=== PATIENT | male | born 1960 | race Caucasian/White ===

== ENCOUNTER 2020-01-05 11:59 | Emergency (ER) | payer OTHER, MEDICARE, SELFPAY ==
[2020-01-05 12:57] VITALS: BP 116/70; PULSE 80; RESP 20; TEMP 36.7; O2SAT 99; BMI 23.0
--- NOTE | 2020-01-05 13:12 | XR_ITS ---
EXAMINATION: XR knee LT 4V CLINICAL INFORMATION: Reason for Exam pt c left knee pain/swelling COMPARISON: None available at the time of this dictation. TECHNIQUE: frontal, lateral, tunnel and patella sunrise views FINDINGS: BONES: No fracture or dislocation is present. JOINTS: Narrowing of joint spaces and developed osteophytes from the edges of articular surfaces suggest degenerative osteoarthritis. SOFT TISSUE: Normal IMPRESSION: Moderate degenerative osteoarthritis involving both medial and lateral compartments. No significant knee joint effusion.
--- NOTE | 2020-01-05 13:17 | ED_ITS ---
HPI - Extremity Problem General Chief complaint: Extremity Problem Stated complaint: Knee Pain Time Seen by Provider: 01/05/20 12:57 Source: patient Mode of arrival: ambulatory Limitations: no limitations History of Present Illness HPI Narrative: 59yoM c PMHx of osteoarthritis, gout and past surgical history of knee surgery presenting to the ED with complaints of left knee pain /swelling since yesterday status post riding his bike. Denies any fevers, chills. Related Data Allergies Allergy/AdvReac Type Severity Reaction Status Date / Time codeine [CODEINE] Allergy Unknown ITCHING Verified 01/05/20 13:00 Review of Systems Review of Systems: Yes all other systems are reviewed and are negative Constitutional: Constitutional: Reports as per HPI Eyes: Eyes: Reports as per HPI ENT: Reports as per HPI Cardiovascular: Cardiovascular: Reports as per HPI Respiratory: Respiratory: Reports as per HPI Gastrointestinal: Gastrointestinal: Reports as per HPI Genitourinary: Genitourinary: Reports as per HPI Musculoskeletal: Musculoskeletal: Reports as per HPI Integumentary/Breasts: Skin/Breast: Reports as per HPI Neurologic: Reports as per HPI Psychiatric: Psychiatric: Reports as per HPI Endocrine: Endocrine: Reports as per HPI Hematologic/Lymphatic: Hematologic/Lymphatic: Reports as per HPI Allergic/Immunologic: Allergic/Immunologic: Reports as per HPI PMF Past Medical History Attestation statement: The following information was validated with the patient. Medical History Cholecystectomy planned Gout Osteoarthritis Surgical History H/O arthroscopic knee surgery H/O knee surgery Social History Social History Advance Directives: No Advance Directives Information Provided: Yes Physical Exam Vital Signs: Vital Signs: Vital Signs Temp Pulse Resp BP Pulse Ox 01/05/20 12:57 98.1 F 80 20 116/70 99 Body Mass Index 23.0 Const: General: cooperative, healthy appearing, comfortable, no acute distress, well developed, alert, awake and Physically active Nutritional Appearance: average body habitus and well nourished Orientation/consciousness: patient oriented x3 Limitations: no limitations HENMT: Head: Yes normal to inspection, Yes No palpable skull fracture present, Yes normocephalic and Yes atraumatic Ears: hearing grossly normal bilaterally General nose exam: Normal external nose present Face and sinus: Yes normal facial exam Mouth: moist mucous membranes Eyes: General: appearance normal, both eyes and all related structures Visual Nguyễn: normal visual nguyễn by confrontation Alignment and Position: alignment normal Periorbital: periorbital findings normal Eyelids: Yes eyelids normal Conjunctivae: conjunctivae normal Sclerae: sclerae normal Pupils: Equal, round and reactive pupils present EOM: EOMs intact bilaterally Neck: Neck: Yes normal visual inspection, Yes full ROM, Yes no lymphadenopathy, Yes no meningeal signs, Yes trachea midline and Yes supple Chest: Chest palpation & inspection: normal inspection of the chest Resp: Effort & Inspection: normal respiratory effort and able to speak in complete sentences Auscultation: clear to auscultation bilaterally, no crackles, no rales, no rhonchi and no wheezes Cardio: Rate: regular rate Rhythm: regular rhythm Heart sounds: S1 normal heart sound present and S2 normal heart sound present Peripheral pulses: Peripheral pulses 2+ throughout GI: Inspection: Yes normal to inspection Palpation (GI): Soft to palpation, nontender and No hepatosplenomegaly present Percussion: Yes normal to percussion Auscultation: normal bowel sounds : General: Yes no CVA tenderness Back/Spine/Pelvis: Back: no CVA tenderness Cervical Spine: normal cervical lordosis and cervical ROM normal Thoracic/Lumbar Spine: thoracic and lumbar spine normal to inspection and thoraco-lumbar ROM normal Skin: General skin exam: no rashes or lesions noted, elasticity normal and turgor normal Trauma: no lacerations or abrasions Wounds: no wounds Hair: normal Nails: normal Neuro: General: patient oriented x3 and no meningeal signs Cranial nerves: Yes CN's II-XII intact bilaterally and Yes Equal, round and reactive pupils present Cognition (Neuro): normal cognition Gait exam (Neuro): Normal gait present Motor exam (neuro): 5/5 motor strength present throughout Extrem: General: Yes normal to inspection, Yes full ROM, Yes capillary refill normal, Yes no clubbing, cyanosis or edema, No no pedal edema, No no calf tenderness, Yes normal gait and No edema Right upper extremity: normal to inspection, full ROM and normal capillary refill; no edema Left upper extremity: normal to inspection, full ROM and normal capillary refill; no edema Right lower extremity: normal to inspection, full ROM and normal capillary refill; no edema Left lower extremity: normal to inspection, full ROM, normal capillary refill and knee Details: normal to inspection, tenderness, swelling (mild sts ) Location: of the patella, normal ROM, knee ligament exam normal and other ( no erythema, Fluctuance or streaking noted.); no abrasions, no lacerations, no ecchymosis, no crepitus, no foreign bodies, no penetrating w ound, no deformity and no unusual warmth; no edema Psych: Appearance: grossly normal and well kempt Mental Status: mental status grossly normal Speech and movement: Normal speech and movement present and Clear speech present Affect: normal affect Attitude: cooperative Thought process: Normal thought process present Thought content: Normal thought content present Insight: Good insight present (Psych) Judgement: Good judgement present (Psych) Course Course Course Narrative: Pt is now s/p knee joint aspiration. BRIANNA Sahu from orthopedics assisted with the left knee joint aspiration and yellow thin colored fluid was aspirated about 10 mL. Patient does not appear to have a septic joint as the knee does not feel warm and there is no erythema and he has full range of motion. X-ray negative for any acute processes shows chronic changes. Patient reports he feels better. Will DC home with symptomatic treatment along with [facility] and to follow-up with orthopedics. Patient understands agrees with this plan. Procedures Joint Aspiration/Injection Joint Asp./Inject. 1: Time Out Performed: Yes Side of body: left Joint Aspirated: knee Ultrasound Guidance: No Skin Prep: sterile prep and drape Needle Size Used: 18G Fluid Obtained: clear (yellow thin colored ) Total fluid obtained (mL): 10 Patient Tolerated Procedure: well Complications: none Discharge Plan Discharge Clinical Impression: Osteoarthritis
[2020-01-05] MEDS: traMADoL HCL 50 MG TABLET PO (13:32)
[2020-01-05] MEDS: NaPROXEN 500 MG TABLET PO (13:32)
--- NOTE | 2020-01-05 14:53 | PC.NURSE ---
Report given to oncoming nurse, Arabella STALLINGS. No further questions from Arabella STALLINGS. Provider aware.
[2020-01-05 15:52] LABS: Neutrophils Synovial Fluid 88 %
[2020-01-05 15:53] LABS: Monocytes Synovial Fluid 12 %
[2020-01-05 15:54] LABS: BF Shift QC OK YES; Man Diluent Bkgrd OK YES
== END 2020-01-05 15:30 | disposition home or self-care (01) ==
PROVIDERS: Physician Assistant Medical; Emergency Provider Emergency Medicine
DX: M17.12 Unilateral primary osteoarthritis, left knee (principal); M10.9 Gout, unspecified; F17.200 Nicotine dependence, unspecified, uncomplicated; Z79.899 Other long term (current) drug therapy
CPT/HCPCS: 20610; 73564; 87071; 87205; 89051; 89060; 99283; 99284

== ENCOUNTER 2022-08-25 12:58 | Emergency (ER) | payer OTHER, MEDICARE, SELFPAY ==
--- NOTE | ~2022-08-25 | XR_ITS ---
EXAMINATION: XR HIP, LEFT CLINICAL INFORMATION: Left hip pain COMPARISON: 01/03/2019 TECHNIQUE: Two views of the left hip. Frontal view of the pelvis. FINDINGS: No fracture or dislocation. The hips are well aligned. Mild to moderate degenerative change of both hips with narrowing and sclerosis. The pelvic rim is intact. The sacroiliac joints and pubic symphysis are intact. Normal bowel gas pattern. XR/XR hip LT w PEL1V IMPRESSION: Mild to moderate degenerative change of both hips.
[2022-08-25 13:35] VITALS: BP 111/81; PULSE 90; RESP 18; TEMP 36; O2SAT 100; BMI 22.9
--- NOTE | 2022-08-25 13:35 | ED_ITS ---
HPI - General Adult General Chief complaint: Extremity Problem Stated complaint: l hip pain Time Seen by Provider: 08/25/22 17:04 History of Present Illness HPI narrative: Patient complains of left hip pain and aching throughout day without injury which is been gradually worsening over several weeks and became more severe over last couple of days, he denies any fever he denies any rash or redness or warmth, he denies any back pain no radiating pain no change to bowel or bladder no dysuria no incontinence Related Data Previous Rx's Medication Instructions Recorded naproxen 500 mg tablet 500 mg PO BID PRN pain (scale 01/05/20 score 1-3) #14 tabs prednisone 20 mg tablet 40 mg PO DAILY inflammation 5 days 01/05/20 #10 tabs tramadol 50 mg tablet 50 mg PO Q8H PRN pain #14 tabs 01/05/20 acetaminophen 500 mg tablet 1,000 mg PO QID PRN pain #30 tabs 08/25/22 ibuprofen 600 mg tablet 600 mg PO Q6H PRN pain #20 tabs 08/25/22 oxycodone 5 mg tablet 5 mg PO Q6H PRN pain #14 tabs 08/25/22 Allergies Allergy/AdvReac Type Severity Reaction Status Date / Time codeine [CODEINE] Allergy Unknown ITCHING Verified 01/05/20 13:00 [facility] Past Medical History Source: nursing notes reviewed Medical History Cholecystectomy planned Gout Osteoarthritis Surgical History H/O arthroscopic knee surgery H/O knee surgery Social History Social History Alcohol intake: never Smoked in Last 30 Days: Yes Substance Use Type: Marijuana Advance Directives: No Advance Directives Information Provided: Yes Physical Exam ED Vital Signs: BMI result Body Mass Index 22.9 General appearance no distress Head is no cephalic atraumatic Neck is supple Respiratory no distress Abdomen soft nontender The back there is no spinal tenderness there is good range of motion in the back Extremities the left hip had tenderness over anterior and lateral hip, pain is reproduced with range of motion, patient can range it but it is uncomfortable, there is no redness warmth or swelling around the joint that is visible, there is no rash on the skin, neurovascular intact distal Other extremities normal Neuro no focal motor sensory deficits Course Course Course Narrative: This is an RME: Additional HPI, ROS, PE not included below will be deferred to primary provider. This is a [id number]-male, with a history of osteoarthritis and gout, presenting to the emergency department with complaints of atraumatic left hip pain x 1 week. Taking prednisone from an old prescription for gout without any relief. Also taking NSAIDs without relief. Hx of hip pain in the past, never this severe. No fevers, chills. Pain to palpation over left posterior hip. Plan:Xray left hip X-ray showed moderate arthritis of the hip, on exam there is no sign of a septic joint, there was no fracture seen on x-ray, patient could ambulate with a limp and he was discharged with analgesics to follow with orthopedics Medications Administered Discontinued Medications Generic Name Dose Route Start Last Admin Trade Name Freq PRN Reason Stop Dose Admin Acetaminophen 975 mg 08/25/22 17:27 08/25/22 17:49 Acetaminophen 325 Mg Tablet PO 08/25/22 17:28 975 mg ONCE ONE Administration Ibuprofen 600 mg 08/25/22 17:27 08/25/22 17:49 Ibuprofen 600 Mg Tablet PO 08/25/22 17:28 600 mg ONCE ONE Administration Oxycodone HCl 10 mg 08/25/22 17:27 08/25/22 17:49 Oxycodone Hcl Immed Release 5 Mg Tablet PO 08/25/22 17:28 10 mg ONCE ONE Administration Discharge Plan Discharge Clinical Impression: Osteoarthritis of left hip Patient Disposition: Home, Self-Care Additional Instructions: X-ray showed arthritis in the hip which is the location of pain Follow with orthopedist for further evaluation Return any time any worse condition or concerns Prescriptions: New oxycodone 5 mg tablet 5 mg PO Q6H PRN (Reason: pain) Qty: 14 0RF Rx Instructions: Partial Fill upon patient request. ibuprofen 600 mg tablet 600 mg PO Q6H PRN (Reason: pain) Qty: 20 0RF acetaminophen 500 mg tablet 1,000 mg PO QID PRN (Reason: pain) Qty: 30 0RF No Action naproxen 500 mg tablet 500 mg PO BID PRN (Reason: pain (scale score 1-3)) Qty: 14 0RF tramadol 50 mg tablet 50 mg PO Q8H PRN (Reason: pain) Qty: 14 0RF prednisone 20 mg tablet 40 mg PO DAILY 5 Days Qty: 10 0RF Referrals: Walter Cheng MD [Physician] - (Left hip arthritis) Interventions: ED Discharge Assessment Last Done: 08/25/22 18:02 Discharge Date/Time: 08/25/22 18:02
[2022-08-25 16:19] VITALS: BP 164/69; PULSE 90; RESP 16; TEMP 36.7; O2SAT 96
[2022-08-25] MEDS: Ibuprofen 600 MG TABLET PO (17:49)
[2022-08-25] MEDS: oxyCODONE HCl Immed Release 5 MG TABLET 10 MG PO (17:49)
[2022-08-25] MEDS: Acetaminophen 325 MG TABLET 975 MG PO (17:49)
== END 2022-08-25 18:02 | disposition home or self-care (01) ==
PROVIDERS: Emergency Provider Internal Medicine; PCP Family Medicine
DX: M16.12 Unilateral primary osteoarthritis, left hip (principal); Z79.899 Other long term (current) drug therapy
CPT/HCPCS: 73502; 99283; 99284

== ENCOUNTER 2023-08-28 14:39 | Inpatient (IN) | payer OTHER, MEDICARE, SELFPAY ==
--- NOTE | ~2023-08-28 | CT_ITS ---
EXAMINATION: CT HEAD WITHOUT CONTRAST CLINICAL INFORMATION: Fall, AMS. COMPARISON: None available. TECHNIQUE: Contiguous axial imaging was performed from the skull base to vertex without intravenous administration of contrast. This CT examination was performed using dose optimization techniques as appropriate, variously including the following: *Automated exposure control *Adjustment of mA and/or kV according to patient size (this includes techniques or standardized protocols for targeted exams where dose is matched to indication/reason for exam; i.e. extremities or head) *Use of iterative reconstruction technique DLP: 672 mGy-cm FINDINGS: There is no acute intra-axial, extra-axial bleed, masses or midline shift. There is no acute infarction evolution. The back to white matter differentiation is maintained normal. The lateral ventricles are symmetrical in size and configuration without enlargement. Bone windows reveal no calvarial abnormality. There is no scalp soft tissue abnormality seen. There is sentinel right maxillary sinus with complete opacification and mild atrophy. Rest of the sinuses are clear. There is no scalp soft tissue abnormality. CT/CT head/brain wo IV con IMPRESSION: 1. No acute intracranial process seen. 2. Chronic right maxillary sinus inflammatory changes..
--- NOTE | ~2023-08-28 | XR_ITS ---
EXAMINATION: XR CHEST CLINICAL INFORMATION: Clearance COMPARISON: Chest radiograph from 05/14/2019 TECHNIQUE: Frontal view of the chest was obtained. FINDINGS: Life elevation right hemidiaphragm. No pneumothorax. Trachea is midline. Cardiac mediastinal silhouette is not enlarged. No large pleural effusion. Chronic changes of the left distal clavicle. Soft tissues are unremarkable. XR/XR chest 1V IMPRESSION: No acute cardiopulmonary process.
--- NOTE | ~2023-08-28 | CT_ITS ---
EXAMINATION: CT HEAD WITHOUT CONTRAST CLINICAL INFORMATION: Memory decline. COMPARISON: CT head from 08/28/2023. TECHNIQUE: Contiguous axial imaging was performed from the skull base to vertex without intravenous administration of contrast. This CT examination was performed using dose optimization techniques as appropriate, variously including the following: *Automated exposure control. *Adjustment of mA and/or kV according to patient size (this includes techniques or standardized protocols for targeted exams where dose is matched to indication/reason for exam; i.e. extremities or head). *Use of iterative reconstruction technique. DLP: 763 mGy-cm FINDINGS: There is no evidence of acute intracranial hemorrhage or edematous territorial infarction. Milian-white matter differentiation is preserved. Chronic lacunar infarcts of the left cerebellar hemisphere. A few foci of hypoattenuation in the periventricular and deep white matter are consistent with mild microangiopathy. Proportional prominence of the ventricles and sulcal spaces without evidence of obstructive hydrocephalus. No abnormal mass effect or midline shift. No extra-axial fluid collections. No acute soft tissue or osseous abnormalities. Complete opacification of an atelectatic right maxillary sinus. Mild mucosal thickening of the remaining paranasal sinuses. Moderate rightward nasal septal deviation. The mastoid air cells and middle ear cavities are clear. CT/CT head/brain wo IV con IMPRESSION: 1. No evidence of acute intracranial hemorrhage or edematous territorial infarction. 2. Mild underlying microangiopathy and generalized cerebral volume loss. Chronic lacunar infarcts of the left cerebellar hemisphere. 3. Complete opacification of an atelectatic right maxillary sinus.
[2023-08-28 14:49] VITALS: BP 140/74; PULSE 100; RESP 16; TEMP 37.1; O2SAT 97; BMI 21.7
[2023-08-28 14:58] VITALS: BP 137/67; PULSE 90; O2SAT 94
--- NOTE | 2023-08-28 15:40 | ECG_ITS ---
Test Reason : WEAKNESS Blood Pressure : / mmHG Vent. Rate : 082 BPM Atrial Rate : 082 BPM P-R Int : 134 ms QRS Dur : 080 ms QT Int : 364 ms P-R-T Axes : 065 060 011 degrees QTc Int : 425 ms Normal sinus rhythm Nonspecific T wave abnormality Abnormal ECG When compared with ECG of 14-MAY-2019 17:11, No significant change was found Referred By: Generic ED Physician Electronically Signed By:BERNADETTE LOPEZ MD
[2023-08-28 15:54] LABS: MANUAL DIFF FLAG NO
[2023-08-28 15:56] LABS: Basophils Percent Auto 0.4 % (0-2); Eosinophils Percent Auto 0.3 % (0-4); Hematocrit 33.8 % (42.0-52.0); Hemoglobin 11.1 g/dl (14.0-18.0); Imm Gran Abs Auto 0.02 X10*3/uL (0.00-0.03); Imm Gran Pct Auto 0.3 % (0.0-0.4); Lymphocytes Absolute Auto 0.8 X10*3/uL (1.2-4.9); Lymphocytes Percent Auto 11.7 % (20-40); Mean Corpuscular HGB Conc 32.8 g/dl (31.0-36.0); Mean Corpuscular Hemoglobin 29.1 pg (27.0-33.0); Mean Corpuscular Volume 88.5 fL (80.0-98.0); Monocytes Absolute Auto 0.5 X10*3/uL (0.1-1.2); Monocytes Percent Auto 6.8 % (2-11); Neutrophils Absolute Auto 5.4 x10*3/uL (2.0-8.3); Neutrophils Percent Auto 80.5 % (45-73); Platelet Count 158 X10*3/uL (160-400); Red Blood Count 3.82 X10*6/uL (4.60-5.80); Red Cell Distribution Width 14.3 % (11.0-16.0); White Blood Count 6.7 X10*3/uL (4.8-10.8)
[2023-08-28 16:12] LABS: Ethanol < 10 mg/dL
[2023-08-28 16:15] LABS: Alanine Aminotransferase 12 U/L (0-40); Albumin Level 3.7 g/dL (3.5-5.0); Alkaline Phosphatase 82 U/L (39-117); Anion Gap 13 (12-20); Aspartate Amino Transferase 19 U/L (5-37); Bilirubin Total 0.3 mg/dL (0.0-1.0); Blood Urea Nitrogen 16 mg/dL (9-16); Calcium 9.2 mg/dL (8.4-10.2); Carbon Dioxide 21 mmol/L (22-29); Chloride 113 mmol/L (96-108); Creatinine Clr Calc Pharmacy 29.1; Estimated Glomerular Filt Rate 27; Glucose Random 111 mg/dL (60-115); Potassium 4.1 mmol/L (3.3-5.1); Sodium 143 mmol/L (135-145); Total Protein 6.8 g/dL (6.5-8.0)
--- NOTE | 2023-08-28 16:32 | ED_ITS ---
HPI - Weakness General Chief complaint: Weakness Stated complaint: OVERTAKING MEDS X1 WK,SLURR,ANASTACIO WEAK PER EMS Time Seen by Provider: 08/28/23 16:30 Source: patient Mode of arrival: EMS Limitations: no limitations History of Present Illness ED Provider: jorge luis HPI Narrative: Patient's history of depression takes Seroquel and Ambien comes here as his girlfriend found him on the ground with increased weakness and falls patient has been very drowsy on arrival denies any overdose said that he took only 1 tablet each of Ambien and Seroquel 20 microgram/hour 2 of them on the back instead of one patch patient on arrival been drowsing slurring his each Related Data Previous Rx's ?Medication ?Instructions ?Recorded naproxen 500 mg tablet 500 mg PO BID PRN pain (scale 01/05/20 score 1-3) #14 tabs prednisone 20 mg tablet 40 mg (2 x 20 mg) PO DAILY 01/05/20 inflammation 5 days #10 tabs tramadol 50 mg tablet 50 mg PO Q8H PRN pain #14 tabs 01/05/20 acetaminophen 500 mg tablet 1,000 mg (2 x 500 mg) PO QID PRN 08/25/22 pain #30 tabs ibuprofen 600 mg tablet 600 mg PO Q6H PRN pain #20 tabs 08/25/22 oxycodone 5 mg tablet 5 mg PO Q6H PRN pain #14 tabs 08/25/22 Allergies Allergy/AdvReac Type Severity Reaction Status Date / Time codeine [CODEINE] Allergy Unknown ITCHING Verified 08/28/23 14:54 Review of Systems 2 Review of Systems: Yes all other systems are reviewed and are negative [facility] Past Medical History Medical History Cholecystectomy planned Osteoarthritis Gout Surgical History H/O arthroscopic knee surgery H/O knee surgery Social History Social History Alcohol intake: never Smoked in Last 30 Days: Yes Use of substances other than those prescribed or required for medical reasons: Yes Substance Use Type: Marijuana Substance Use Frequency: Daily Advance Directives: No Advance Directives Information Provided: No Physical Exam 2 Vital Signs: Vital Signs: Last Vital Signs Temp 98.2 F 08/29/23 01:08 Pulse 80 08/29/23 01:08 Resp 13 08/29/23 01:08 BP 107/54 L 08/29/23 01:08 Pulse Ox 94 08/29/23 01:08 O2 Del Method Room Air 08/29/23 01:08 O2 Flow Rate 2 08/28/23 18:28 Oxygen Flow Rate 2 08/28/23 14:49 BMI result Body Mass Index 21.7 Appearance: Alert. Oriented X3. Sleepy , arousable lethargic Eyes: PERRLA, No Nystagmus ENT: Pharynx normal. Oral Mucosa moist Neck: Normal inspection. Neck supple. CVS: Normal heart rate and rhythm. Pulses normal. Respiratory: No respiratory distress. Equal air entry bilateral, no wheezing/rales/rhonchi Abdomen: Soft and nontender. Bowel sounds are present, no mass palpable, no CVA tenderness Skin: Skin warm and dry. Normal skin color. Normal skin turgor. Extremities: No lower extremity edema. No calf tenderness Neuro: Oriented X 3. No motor deficit. No sensory deficit.No cerebellar signs , cranial nerves II-XII intact Medications Administered Discontinued Medications Generic Name Dose Route Start Last Admin Trade Name Freq PRN Reason Stop Dose Admin Sodium Chloride 1,000 mls @ 999 mls/hr 08/28/23 16:33 08/28/23 19:00 Ns IV 08/28/23 17:33 Infused .Q1H1M ONE Infusion Medical Decision Making Medical Decision Making [facility] Narrative: Patient's depression with possible increased medication intake not clear whether suicidal or not seen by care team will evaluate patient again in AM per family patient has been depressed and suicidal lately Differential Diagnosis Differential Diagnoses: The differential diagnosis associated with the presentation includes Lab Data [facility] Lab Attestation statement: I reviewed the patient's lab results. 08/28/23 15:51 08/28/23 15:51 Labs: Lab Results 08/28/23 08/28/23 Range/Units 15:51 21:13 WBC 6.7 (4.8-10.8) X10*3/uL RBC 3.82 L (4.60-5.80) X10*6/uL Hgb 11.1 L (14.0-18.0) g/dl Hct 33.8 L (42.0-52.0) % MCV 88.5 (80.0-98.0) fL MCH 29.1 (27.0-33.0) pg MCHC 32.8 (31.0-36.0) g/dl RDW 14.3 (11.0-16.0) % Plt Count 158 L (160-400) X10*3/uL MPV 10.0 (9.4-12.4) fL Immature Gran % (Auto) 0.3 (0.0-0.4) % Neut % (Auto) 80.5 H (45-73) % Lymph % (Auto) 11.7 L (20-40) % [place] % (Auto) 6.8 (2-11) % Eos % (Auto) 0.3 (0-4) % Baso % (Auto) 0.4 (0-2) % Lymph # (Auto) 0.8 L (1.2-4.9) X10*3/uL [place] # (Auto) 0.5 (0.1-1.2) X10*3/uL Eos # (Auto) 0.0 (0.0-0.4) X10*3/uL Baso # (Auto) 0.0 (0.0-0.2) X10*3/uL Abs Immat Gran (auto) 0.02 (0.00-0.03) X10*3/uL Absolute Neuts (auto) 5.4 (2.0-8.3) x10*3/uL Absolute Nucleated RBC 0.000 (0.0-0.012) X10*3/uL Nucleated RBC % (auto) 0.0 (0.0-0.2) /100WBC Sodium 143 (135-145) mmol/L Potassium 4.1 (3.3-5.1) mmol/L Chloride 113 H (96-108) mmol/L Carbon Dioxide 21 L (22-29) mmol/L Anion Gap 13 (12-20) BUN 16 (9-16) mg/dL Creatinine 2.39 H (0.5-1.4) mg/dL Estim Creat Clear Calc 29.1 Estimated GFR 27 Random Glucose 111 (60-115) mg/dL Calcium 9.2 (8.4-10.2) mg/dL Total Bilirubin 0.3 (0.0-1.0) mg/dL AST 19 (5-37) U/L ALT 12 (0-40) U/L Alkaline Phosphatase 82 (39-117) U/L Total Protein 6.8 (6.5-8.0) g/dL Albumin 3.7 (3.5-5.0) g/dL Urine Color Yellow Urine Appearance Clear Urine pH 6.0 (5.0-9.0) Ur Specific [place] 1.015 (1.005-1.025) Urine Protein Trace (Neg-Trace) mg/dL Urine Glucose (UA) Negative (Negative) mg/dL Urine Ketones Negative (Negative) mg/dL Urine Blood Negative (Negative) Urine Nitrite Negative (Negative) Ur Leukocyte Esterase Negative (Negative) Urine Opiates Screen Not Detected (Not Detect) Ur Buprenorphine Scrn Not Detected (Not Detect) ng/mL Ur Oxycodone Screen Not Detected (Not Detect) ng/mL Urine Methadone Screen Not Detected (Not Detect) ng/mL Urine Fentanyl Screen Not Detected (Not Detect) Ur Barbiturates Screen Not Detected (Not Detect) Ur Phencyclidine Scrn Not Detected (Not Detect) Ur Amphetamines Screen Not Detected (Not Detect) U Benzodiazepines Scrn POSITIVE H (Not Detect) Urine Cocaine Screen Not Detected (Not Detect) U Marijuana (THC) Screen POSITIVE H (Not Detect) Ethyl Alcohol < 10 mg/dL Influenza Type A (PCR) NEGATIVE (Negative) Influenza Type B (PCR) NEGATIVE (Negative) RSV RNA Qual (PCR) NEGATIVE (Negative) SARS-CoV-2 RNA (RT-PCR) NEGATIVE (Negative) Discharge Plan Discharge Clinical Impression: Depression, Overdose Patient Disposition: Still a Patient Prescriptions: No Action naproxen 500 mg tablet 500 mg PO BID PRN (Reason: pain (scale score 1-3)) Qty: 14 0RF tramadol 50 mg tablet 50 mg PO Q8H PRN (Reason: pain) Qty: 14 0RF prednisone 20 mg tablet 40 mg PO DAILY 5 Days Qty: 10 0RF oxycodone 5 mg tablet 5 mg PO Q6H PRN (Reason: pain) Qty: 14 0RF Rx Instructions: Partial Fill upon patient request. ibuprofen 600 mg tablet 600 mg PO Q6H PRN (Reason: pain) Qty: 20 0RF acetaminophen 500 mg tablet 1,000 mg PO QID PRN (Reason: pain) Qty: 30 0RF Print Language: Syriac
[2023-08-28] MEDS: 0.9 % Sodium Chloride 1,000 ML 999 ML IV (17:39)
--- NOTE | 2023-08-28 18:14 | PC.NURSE ---
patients daughter at bedside, states he has been increasingly depressed. patients daughter voices concern for patient intentionally overdosing on his medications, patient states he did take too much of his medication unable to verify how much. patient speech is slurred, patient not able to make sense of what he is saying.
[2023-08-28 18:28] VITALS: BP 137/77; PULSE 89; RESP 15; TEMP 37.1; O2SAT 98
[2023-08-28 21:23] LABS: Appearance Urine Clear; Color Urine Yellow; Glucose Urine UA Negative (Negative); Leukocyte Esterase Urine Negative (Negative); Nitrite Urine Negative (Negative); Specific Gravity - Urine 1.015 (1.005-1.025); Urine Blood Negative (Negative); Urine Ketones Negative (Negative); Urine Protein Trace mg/dL (Neg-Trace)
--- NOTE | 2023-08-28 21:27 | PC.NURSE ---
this rn assumed care of pt. pt alert to self at this time, and year, pt unable to state where he is. at this time, pt reports prior to arrival he was having SI thoughts; states he wanted to go to sleep and not wake up. pt denies acting on these thoughts in any way. pt reports being increasingly depressed. pt denies si/hi thoughts at this time. pt changed over into green gown. pt daughter at bedside for support. 1:1 sitter for safety.
[2023-08-28 21:31] LABS: Amphetamine Screen Urine Not Detected (Not Detect); Barbiturates, Urine Not Detected (Not Detect); Benzodiazepines Screen Urine POSITIVE (Not Detect); Buprenorphine Scr Not Detected (Not Detect); Cannabinoid Screen Urine POSITIVE (Not Detect); Cocaine Screen Urine Not Detected (Not Detect); Fentanyl, urine Not Detected (Not Detect); Methadone Screen, Urine Not Detected (Not Detect); Opiate Screen Urine Not Detected (Not Detect); Oxycodone Screen Urine Not Detected (Not Detect); Phencyclidine Screen Urine Not Detected (Not Detect)
[2023-08-28 21:58] LABS: Influenza A PCR NEGATIVE (Negative); Influenza B PCR NEGATIVE (Negative); Resp Syncy Virus RNA Qual PCR NEGATIVE (Negative); SARS COV2 PCR INHOUSE NEGATIVE (Negative)
[2023-08-28 22:48] VITALS: BP 112/56; PULSE 92; RESP 17; TEMP 36.7; O2SAT 94
--- NOTE | 2023-08-28 23:23 | MHC.CARE ---
RAD Team faxed pt IPLOC assessment to [facility]. [facility] received assessment and is reviewing. Will follow up tomorrow.
--- NOTE | 2023-08-29 00:01 | PC.NURSE ---
iv access removed at this time, provider aware.
[2023-08-29 01:08] VITALS: BP 107/54; PULSE 80; RESP 13; TEMP 36.8; O2SAT 94
--- NOTE | 2023-08-29 06:09 | PC.NURSE ---
pt allowed to sleep, respirations even and unlabored. 1:1 sitter at bedside.
[2023-08-29 06:16] VITALS: BP 142/76; PULSE 91; RESP 17; TEMP 37.3; O2SAT 92
[2023-08-29] MEDS: traMADoL HCL 50 MG TABLET PO ×2 (06:27→07:43)
--- NOTE | 2023-08-29 06:28 | PC.NURSE ---
pt reporting 8/10 bilateral knee pain, aware, pt medicated per mar, tolerated well.
--- NOTE | 2023-08-29 06:56 | MHC.EDTECH ---
Pt belongings in POD locker #8.
--- NOTE | 2023-08-29 07:46 | PC.NURSE ---
patient complaining of bilateral knee pain, medicated per the MAR. provided with breakfast tray. alert and oriented with even and unlabored respirations. patient observer remains at bedside
[2023-08-29 08:56] VITALS: BP 122/73; PULSE 84; O2SAT 94
--- NOTE | 2023-08-29 09:08 | MHC.CARE ---
On 08/27 Rad Team presented referral to [facility]. Today 08/28 t/w spoke with Glenys at [facility] who stated that the doctor declined Pt due to have an unwitnessed fall and suspected overdose. Bed search will continue.
[2023-08-29 10:08] LABS: Anion Gap 13 (12-20); Blood Urea Nitrogen 12 mg/dL (9-16); Calcium 9.1 mg/dL (8.4-10.2); Carbon Dioxide 20 mmol/L (22-29); Chloride 114 mmol/L (96-108); Creatinine Clr Calc Pharmacy 37.2; Estimated Glomerular Filt Rate 36; Glucose Random 109 mg/dL (60-115); Potassium 4.2 mmol/L (3.3-5.1); Sodium 143 mmol/L (135-145)
--- NOTE | 2023-08-29 11:13 | PC.NURSE ---
called pharmacy - they are working on med rec through [facility]
--- NOTE | 2023-08-29 12:21 | PHA.MEDREC ---
Pharmacy Consult ? Medication Reconciliation Pharmacy has completed the medication reconciliation, list received from the PR.
[2023-08-29] MEDS: Multivitamin TABLET 1 TAB PO (12:57)
[2023-08-29] MEDS: Nicotine 21 MG PATCH.TD24 TRANSDERMA (12:57)
[2023-08-29] MEDS: busPIRone HCl 10 MG TABLET PO ×2 (14:44→22:58)
[2023-08-29] MEDS: Ondansetron ODT 4 MG TAB.RAPDIS TRANSLINGU (14:44)
[2023-08-29 16:35] VITALS: BP 115/70; PULSE 92; RESP 16; TEMP 37; O2SAT 95
[2023-08-29] MEDS: Acetaminophen 325 MG TABLET 650 MG PO (17:42)
--- NOTE | 2023-08-29 18:05 | PC.NURSE ---
Addendum entered by Ita Prabhakar RN 08/29/23 18:25: Patient reported that he has fallen 3 times over the past week and is a fall risk Addendum entered by Ita Prabhakar RN 08/29/23 18:24: Patient signed a CV with provider upon arrival to the unit. Original Note: Mr. Gupta who prefers to be called, Anupam , was admitted to Room 6 from the ED at 4:30pm on a section 12B for, over-taking his meds He denied overusing his meds to this sql report writer, and identified depression, anxiety, and command auditory hallucinations to kill himself or hurt others as his current stressors. He denies active suicidal ideation and the hallucinations are ego dystonic. Mr. Gupta is a of the [employer] and endorses PTSD symptoms from his time served. Skin and safety checks were completed, VS WNL ([id number] 115/70-O2 sat 95%), height=5'9', weight 65.6kg/ 144lbs. Mr. Gupta reported smoking 1/2- 1 pack of cigarettes daily and is requesting the patch as a replacement aid. He reports smoking approximately 1 bowl of cannabis daily for sleep and denies other substance or ETOH use. Mr. Gupta was oriented to the unit and admission packet was reviewed with him. He was endorsing pain level of 9/10 due to gout flare-up. Buprenorphine transdermal 7 day patch was applied at 17:40 and witnessed by this sql report writer and Yari Calixto.
[2023-08-29 20:00] VITALS: BP 116/52; PULSE 73; TEMP 36.6
[2023-08-29 22:40] VITALS: BP 116/52; PULSE 73; TEMP 36.6
[2023-08-29] MEDS: QUEtiapine Fumarate 400 MG TABLET 800 MG PO (22:57)
[2023-08-29] MEDS: Atorvastatin Calcium 20 MG TABLET PO (22:57)
[2023-08-29] MEDS: Melatonin 3 MG TABLET 18 MG PO (22:58)
[2023-08-29] MEDS: traZODone HCL 50 MG TABLET PO (23:00)
[2023-08-29] MEDS: Mirtazapine 15 MG TABLET PO (23:00)
[2023-08-29] MEDS: lamoTRIgine 100 MG TABLET PO (23:00)
[2023-08-30 06:00] VITALS: BP 110/56; PULSE 74; RESP 14; TEMP 36.4; O2SAT 97
[2023-08-30] MEDS: QUEtiapine Fumarate 100 MG TABLET PO ×2 (06:33→15:39)
--- NOTE | 2023-08-30 06:34 | PC.NURSE ---
Anupam was given Seroquel PO prn for elevated anxiety this am.
[2023-08-30 08:10] VITALS: BP 91/52; PULSE 88; RESP 18; TEMP 36.4; O2SAT 89
[2023-08-30 08:39] LABS: Estimated Average Glucose 123 mg/dL; Hemoglobin A1c % 5.9 % (<6.0)
[2023-08-30 08:50] LABS: Cholesterol 186 mg/dL (<200); HDL Cholesterol 47 mg/dL (>40); LDL Cholesterol Calculated 108 mg/dL (<100); Magnesium 1.6 mg/dL (1.6-2.6); Triglycerides 155 mg/dL (<150)
[2023-08-30 09:05] LABS: Free T4 (Free Thyroxine) 0.83 ng/dL (0.71-1.85); Thyroid Stimulating Hormone 0.75 uIU/mL (0.32-4.0)
[2023-08-30] MEDS: busPIRone HCl 10 MG TABLET PO ×3 (09:23→20:39)
[2023-08-30] MEDS: Multivitamin TABLET 1 TAB PO (09:23)
[2023-08-30] MEDS: Ferrous Sulfate 324 MG TABLET.DR PO (09:23)
[2023-08-30 09:24] LABS: Folate 7.1 ng/mL (> or = 4.0); Vitamin B12 < 148 pg/mL (200-900)
[2023-08-30] MEDS: Nicotine 21 MG PATCH.TD24 TRANSDERMA (09:24)
[2023-08-30 10:36] LABS: MANUAL DIFF FLAG NO
[2023-08-30 10:40] LABS: Basophils Percent Auto 0.6 % (0-2); Eosinophils Absolute Auto 0.1 X10*3/uL (0.0-0.4); Eosinophils Percent Auto 1.7 % (0-4); Hematocrit 36.9 % (42.0-52.0); Hemoglobin 11.9 g/dl (14.0-18.0); Imm Gran Abs Auto 0.03 X10*3/uL (0.00-0.03); Imm Gran Pct Auto 0.6 % (0.0-0.4); Lymphocytes Absolute Auto 1.3 X10*3/uL (1.2-4.9); Lymphocytes Percent Auto 24.1 % (20-40); Mean Corpuscular HGB Conc 32.2 g/dl (31.0-36.0); Mean Corpuscular Volume 89.8 fL (80.0-98.0); Mean Platelet Volume 10.6 fL (9.4-12.4); Monocytes Absolute Auto 0.3 X10*3/uL (0.1-1.2); Monocytes Percent Auto 5.1 % (2-11); Neutrophils Absolute Auto 3.6 x10*3/uL (2.0-8.3); Neutrophils Percent Auto 67.9 % (45-73); Platelet Count 216 X10*3/uL (160-400); Red Blood Count 4.11 X10*6/uL (4.60-5.80); Red Cell Distribution Width 14.2 % (11.0-16.0); White Blood Count 5.3 X10*3/uL (4.8-10.8)
--- NOTE | 2023-08-30 10:55 | P.HPPS_ITS ---
HPI Date of Service: 08/30/23 Chief Complaint: OVERTAKING MEDS X1 WK,SLURR,ANASTACIO WEAK PER EMS Sources of Information: patient interviewed, chart reviewed and crisis/core team assessment reviewed HPI Subjective Notes: Burris Warning (given and shows understanding) and Conditional Voluntary Narrative: Mr. Gupta is a 63 year-old male who was brought via EMS after GF found him confused. He did not know whether he had taken more of his medications at bedtime. He is prescribed combination of seroquel and ambien. In the ED, utox positive for benzo and THC. CBC with normocytic anemia, no leukocytosis. CMP initially with increased Cr. 2.39, that went down to 1.87. BUN wnl 16. Creatinine clearance 37.2. On the unit, pt presents as pleasant and cooperative. He denies suicidal or homicidal ideation. He also denies he had an intentional overdose or that he was having suicidal ideation prior to being found confused. He states he has been struggling with his memory and at times wondering if he has taken his medications at night or not. He also reports he has noticed being more forgetful. He reports that for the past year he has been having more hallucinations. 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 He states he has always had flashbacks of past combat memories but now they have been more intense. He reports his sleep has improved with ambien which he has been taking for about one year or so. He reports his life overall is going well and he wants to be as healthy as he can to live as long as he can. Past Psychiatric History: Inpatient: pt reports he has had about 5-8 inpatient admissions throughout his life after he served in the . He thinks his last admission was 5 years ago. He denies hx of suicide attempts OP: prescriber Emanuel So Past medication trials: seroquel, buprenorphine, buspar, remeron Medical Evaluation Reviewed: Yes see for gout exacerbation- started on prednisone taper LIOR- resolving[facility] Medical History Cholecystectomy planned Osteoarthritis Gout Surgical History H/O arthroscopic knee surgery H/O knee surgery Family History: denies Social History: lives alone. He has daughter Substance History: past hx of opioid use, currently on buprenorphine THC- reports using sativa to help with sleep. denies use of alcohol or cocaine Trauma History: combat related trauma Diagnostics Vital Signs (24Hr): Vital Signs - 24 hr 08/29/23 16:35 08/29/23 20:00 08/29/23 22:40 Temperature 98.6 F 97.9 F 97.9 F Pulse Rate 92 73 73 Respiratory Rate 16 Blood Pressure 115/70 116/52 L 116/52 L Pulse Oximetry 95 Oxygen Delivery Method Room Air 08/30/23 08:10 Temperature 97.6 F Pulse Rate 88 Respiratory Rate 18 Blood Pressure 91/52 L Pulse Oximetry 89 L Oxygen Delivery Method Room Air BMI result Body Mass Index 21.7 Labs 08/30/23 09:51 08/30/23 09:51 Labs: Laboratory Results - last 48 hr 08/28/23 08/28/23 08/29/23 15:51 21:13 09:37 WBC 6.7 RBC 3.82 L Hgb 11.1 L Hct 33.8 L MCV 88.5 MCH 29.1 MCHC 32.8 RDW 14.3 Plt Count 158 L MPV 10.0 Immature Gran % (Auto) 0.3 Neut % (Auto) 80.5 H Lymph % (Auto) 11.7 L Coffey % (Auto) 6.8 Eos % (Auto) 0.3 Baso % (Auto) 0.4 Lymph # (Auto) 0.8 L Coffey # (Auto) 0.5 Eos # (Auto) 0.0 Baso # (Auto) 0.0 Abs Immat Gran (auto) 0.02 Absolute Neuts (auto) 5.4 Absolute Nucleated RBC 0.000 Nucleated RBC % (auto) 0.0 Sodium 143 143 Potassium 4.1 4.2 Chloride 113 H 114 H Carbon Dioxide 21 L 20 L Anion Gap 13 13 BUN 16 12 Creatinine 2.39 H 1.87 H Estim Creat Clear Calc 29.1 37.2 Estimated GFR 27 36 Random Glucose 111 109 Estimat Average Glucose Hemoglobin A1c % Calcium 9.2 9.1 Magnesium Total Bilirubin 0.3 AST 19 ALT 12 Alkaline Phosphatase 82 Total Protein 6.8 Albumin 3.7 Triglycerides Cholesterol LDL Cholesterol, Calc HDL Cholesterol Vitamin B12 Folate TSH Free T4 Urine Color Yellow Urine Appearance Clear Urine pH 6.0 Ur Specific [place] 1.015 Urine Protein Trace Urine Glucose (UA) Negative Urine Ketones Negative Urine Blood Negative Urine Nitrite Negative Ur Leukocyte Esterase Negative Urine Opiates Screen Not Detected Ur Buprenorphine Scrn Not Detected Ur Oxycodone Screen Not Detected Urine Methadone Screen Not Detected Urine Fentanyl Screen Not Detected Ur Barbiturates Screen Not Detected Ur Phencyclidine Scrn Not Detected Ur Amphetamines Screen Not Detected U Benzodiazepines Scrn POSITIVE H Urine Cocaine Screen Not Detected U Marijuana (THC) Screen POSITIVE H Ethyl Alcohol < 10 Influenza Type A (PCR) NEGATIVE Influenza Type B (PCR) NEGATIVE RSV RNA Qual (PCR) NEGATIVE SARS-CoV-2 RNA (RT-PCR) NEGATIVE 08/30/23 08/30/23 08:01 09:51 WBC 5.3 RBC 4.11 L Hgb 11.9 L Hct 36.9 L MCV 89.8 MCH 29.0 MCHC 32.2 RDW 14.2 Plt Count 216 D MPV 10.6 Immature Gran % (Auto) 0.6 H Neut % (Auto) 67.9 Lymph % (Auto) 24.1 Coffey % (Auto) 5.1 Eos % (Auto) 1.7 Baso % (Auto) 0.6 Lymph # (Auto) 1.3 Coffey # (Auto) 0.3 Eos # (Auto) 0.1 Baso # (Auto) 0.0 Abs Immat Gran (auto) 0.03 Absolute Neuts (auto) 3.6 Absolute Nucleated RBC 0.000 Nucleated RBC % (auto) 0.0 Sodium Potassium Chloride Carbon Dioxide Anion Gap BUN Creatinine Estim Creat Clear Calc Estimated GFR Random Glucose Estimat Average Glucose 123 Hemoglobin A1c % 5.9 Calcium Magnesium 1.6 Total Bilirubin AST ALT Alkaline Phosphatase Total Protein Albumin Triglycerides 155 H Cholesterol 186 LDL Cholesterol, Calc 108 H HDL Cholesterol 47 Vitamin B12 < 148 L Folate 7.1 TSH 0.75 Free T4 0.83 Urine Color Urine Appearance Urine pH Ur Specific [place] Urine Protein Urine Glucose (UA) Urine Ketones Urine Blood Urine Nitrite Ur Leukocyte Esterase Urine Opiates Screen Ur Buprenorphine Scrn Ur Oxycodone Screen Urine Methadone Screen Urine Fentanyl Screen Ur Barbiturates Screen Ur Phencyclidine Scrn Ur Amphetamines Screen U Benzodiazepines Scrn Urine Cocaine Screen U Marijuana (THC) Screen Ethyl Alcohol Influenza Type A (PCR) Influenza Type B (PCR) RSV RNA Qual (PCR) SARS-CoV-2 RNA (RT-PCR) Imaging Radiology Impressions: ITS Impressions Head CT 08/28/23 18:07 IMPRESSION: 1. No acute intracranial process seen. 2. Chronic right maxillary sinus inflammatory changes.. Chest X-Ray 08/29/23 09:16 IMPRESSION: No acute cardiopulmonary process. Meds/Allergies Meds Home Medications ?Medication ?Instructions ?Recorded ?Confirmed ?Type acetaminophen 500 mg tablet 500 mg PO Q6H PRN pain 08/29/23 08/29/23 History atorvastatin 20 mg tablet 20 mg PO BEDTIME 08/29/23 08/29/23 History benztropine 1 mg tablet 1 mg PO BID PRN EPS 08/29/23 08/29/23 History buprenorphine 20 mcg/hour weekly 1 patch transdermal QWEEK 08/29/23 08/29/23 History transdermal patch buprenorphine HCl 75 mcg buccal 75 mcg buccal Q12H PRN acute pain 08/29/23 08/29/23 History film buspirone 10 mg tablet 10 mg PO TID 08/29/23 08/29/23 History diclofenac sodium 1 % topical gel 4 g topical QID 08/29/23 08/29/23 History docusate sodium 100 mg capsule 100 mg PO BID PRN Constipation 08/29/23 08/29/23 History febuxostat 40 mg tablet 40 mg PO DAILY 08/29/23 08/29/23 History ferrous gluconate 324 mg (37.5 mg 324 mg PO DAILY 08/29/23 08/29/23 History iron) tablet fluticasone 250 mcg-salmeterol 50 1 inh inhalation BID 08/29/23 08/29/23 History mcg/dose blistr powdr for inhalation lamotrigine 100 mg tablet 100 mg PO BEDTIME 08/29/23 08/29/23 History melatonin 5 mg tablet 20 mg PO BEDTIME PRN Insomnia 08/29/23 08/29/23 History mirtazapine 15 mg tablet 15 mg PO BEDTIME 08/29/23 08/29/23 History multivitamin 1 tab PO DAILY 08/29/23 08/29/23 History nicotine 21 mg/24 hr daily 1 patch transdermal DAILY 08/29/23 08/29/23 History transdermal patch prednisone 10 mg tablet 10 mg PO DAILY PRN gout attack 08/29/23 08/29/23 History quetiapine 100 mg tablet 100 mg PO BID PRN voices/anxiety 08/29/23 08/29/23 History quetiapine 400 mg tablet 800 mg PO BEDTIME 08/29/23 08/29/23 History sildenafil 100 mg tablet 100 mg PO DAILY PRN Erectile 08/29/23 08/29/23 History Dysfunction tiotropium bromide 2.5 2 puff inhalation DAILY 08/29/23 08/29/23 History mcg/actuation mist for inhalation Allergies Allergies Allergy/AdvReac Type Severity Reaction Status Date / Time codeine [CODEINE] Allergy Unknown ITCHING Verified 08/28/23 14:54 Mental Status Exam Mental Status Exam Narrative: Appearance: appears older than reported age. thin, ambulating with some difficulty due to knee pain. no acute distress Behavior: friendly and cooperative Psychomotor: no agitation or retardation noted Speech: clear, normal rate/rhythm/volume, spontaneous TP: linear TC: worried as to why he was confused Mood: in pain Affect: congruent SI: denies HI: denies VH/AH: none- he reports flashback but these are not psychotic in nature Delusions: none Insight/judgment: fair x 2. Memory/cog: alert, oriented x 3. reports memory changes including forgetfulness and confusions. pending moca/acl Assessment & Plan Assessment & Plan (1) Chronic post-traumatic stress disorder (PTSD) after combat: Status: Acute Code(s): F43.12 - Post-traumatic stress disorder, chronic; Z91.82 - Personal history of deployment (2) Cognitive decline: Status: Acute Code(s): R41.89 - Other symptoms and signs involving cognitive functions and awareness Plan Mr. Gupta is a 63 year-old male who was brought via EMS after found by GF confused and disoriented. He could not remember whether he had taken more medications than he should at bedtime. He denies suicide attempt or intentional overdose but he is not sure if he took more seroquel thinking he had not taken any at all. He also takes ambien which is known to cause amnesia and confusions. Also, of note, ambien can exacerbate flashbacks as he has noted in the past year or so since he started taking this medications. Other than, pt presents as future oriented and hoping he is as healthy as possible to continue engaging in activities that he enjoys. We discussed completing assessments to assess his memory. Noted very low B12 <200- will start cyanocobalamine 1000mcg IM qweekly x 4, then transition to oral. Head CT did not show chronic changes including atrophy or microvascular changes. Will also complete MOCA/ACL. we had lengthy discussion about effects of ambien on memory/cognition. Will complete sleep study as he is worried that if he stops ambien, he may not sleep at all. Will continue seroquel for now. hold ambien. PLAN 1. admit to , cv, 15 minutes checks for safety 2. order sleep study 3. low b12- start cyanocobalamine 1000mcg IM qweekly 4. hold ambien for now 5. obtain collateral information. Patient educated on: diagnosis Informed Consent: understands Reason for continued inpatient stay Substantial Risk for: inability to function Statement Statement: I have reviewed the history and physical and performed a pertinent examination on my patient. No changes have occurred unless specified. If the History and Physical was not performed prior to admission, the Hospitalist's service will be consulted for completing the admission physical. Time Spent With Patient Time: Total time managing care of this patient today ____ minutes.
[2023-08-30 10:57] LABS: Uric Acid 10.8 mg/dL (3.4-7.0)
[2023-08-30 11:00] VITALS: BP 123/58; TEMP 36.4; O2SAT 95
--- NOTE | 2023-08-30 11:08 | P.EN_ITS ---
Event Note Date of Service: 08/30/23 Event Note: 63-year-old male with history of gout and osteoarthritis admitted to adult Psychiatry with consult placed hospitalist service for evaluation of gout attack. The patient reports long history of recurrent gout flares to the knees bilaterally. Denies gout in any other joints historically. He states yesterday began experiencing pain in the bilateral knees and difficulty bearing weight. States feels consistent with gout flare. Apparently, outpatient, he is pre scribed 10 mg daily p.r.n. for gout flare. On exam, there is warmth to the knees bilaterally without any significant erythema or swelling. Uric acid level is significantly elevated at 10.8. Would not recommend treating gout flares p.r.n. with 10 mg of prednisone as this is unlikely to be a high enough dose to treat an acute gout flare. While in the unit, will treat with prednisone taper with 40 mg daily x5 days, then 30 mg daily x2 days, 20 mg daily x2 days, 10 mg daily x2 days. He should be evaluated outpatient by PCP and should be considered for allopurinol for uric acid suppression rather than using p.r.n. prednisone. CBC without any leukocytosis. Thank you for allowing me to participate in this consult. Signing off at this time. Please do not hesitate to call for further questions or for any acute medical concerns/issues that should arise. Time Spent With Patient Time: Total time managing care of this patient today ____ minutes.
[2023-08-30] MEDS: predniSONE 10 MG TABLET 30 MG PO (11:24)
[2023-08-30] MEDS: Acetaminophen 325 MG TABLET 650 MG PO (12:39)
[2023-08-30 14:21] LABS: Anion Gap 15 (12-20)
[2023-08-30 14:24] LABS: Blood Urea Nitrogen 12 mg/dL (9-16); Calcium 9.6 mg/dL (8.4-10.2); Carbon Dioxide 21 mmol/L (22-29); Chloride 110 mmol/L (96-108); Creatinine Clr Calc Pharmacy 32.3; Estimated Glomerular Filt Rate 31; Glucose Random 152 mg/dL (60-115); Potassium 4.1 mmol/L (3.3-5.1); Sodium 142 mmol/L (135-145)
[2023-08-30 14:30] VITALS: BP 110/56; PULSE 74; PULSE 78; RESP 14; TEMP 36.4; O2SAT 97
[2023-08-30] MEDS: traMADoL HCL 50 MG TABLET PO (14:59)
[2023-08-30] MEDS: Cyanocobalamin (Vitamin B-12) 1,000 MCG/ML VIAL 1000 MCG IM (15:33)
[2023-08-30 19:54] VITALS: BP 115/67; PULSE 79; RESP 16; TEMP 36.7; O2SAT 94
[2023-08-30] MEDS: Atorvastatin Calcium 20 MG TABLET PO (20:39)
[2023-08-30] MEDS: lamoTRIgine 100 MG TABLET PO (20:39)
[2023-08-30] MEDS: Mirtazapine 30 MG TABLET PO (20:39)
[2023-08-30] MEDS: QUEtiapine Fumarate 400 MG TABLET 800 MG PO (20:39)
[2023-08-30] MEDS: Melatonin 3 MG TABLET 18 MG PO (20:39)
[2023-08-30 22:00] VITALS: BP 115/67; PULSE 94; RESP 16; TEMP 36.7; O2SAT 94
--- NOTE | 2023-08-30 23:47 | PC.RT ---
Sleep study started at 2340 pt on RA; sitter in room
[2023-08-31 07:00] VITALS: BMI 21.9
[2023-08-31 08:00] VITALS: BP 112/61; PULSE 76; RESP 18; TEMP 36.4; O2SAT 97
[2023-08-31] MEDS: predniSONE 10 MG TABLET 30 MG PO (09:17)
[2023-08-31] MEDS: Ferrous Sulfate 324 MG TABLET.DR PO (09:17)
[2023-08-31] MEDS: busPIRone HCl 10 MG TABLET PO ×3 (09:17→20:39)
[2023-08-31] MEDS: Multivitamin TABLET 1 TAB PO (09:17)
[2023-08-31] MEDS: Nicotine 21 MG PATCH.TD24 TRANSDERMA (09:20)
[2023-08-31] MEDS: QUEtiapine Fumarate 100 MG TABLET PO ×2 (09:36→14:31)
[2023-08-31] MEDS: Fluticasone/Vilanterol 100/25 BLST.W.DEV 1 PUFF INHALE (09:37)
[2023-08-31] MEDS: Tiotropium Bromide 2.5 mcg 1 PUFF/2.5 MCG MIST.INHAL 2 PUFF INHALE (09:37)
--- NOTE | 2023-08-31 10:14 | HO.PSYCHPN ---
Subjective Subjective Date of Service: 08/31/23 Reason For Visit: OVERTAKING MEDS X1 WK,SLURR,ANASTACIO WEAK PER EMS Subjective Notes: Conditional Voluntary Interim History: Pt slept about 7 hrs. He did have the sleep study last night, awaiting results. Head CT did show chronic lacunar infarcts of the left cerebellar hemisphere, periventricular and deep white matter microangiopathy and generalized atrophy. Pt reports he slept well too without the ambien. He does not seem to remember our lengthy conversation about rationale for sleep study. pending MOCA and ACL. He denies SI/HI. He reports mood better. He reports less nightmares last night. Less flashbacks. He has been visible on the unit, social with peers. Pleasant on approach. Medication Compliance: Yes Side effects from medications: No Attending Groups: Yes Mental Status Exam Mental Status Exam Narrative: Appearance: appears older than reported age. thin. no acute distress Behavior: friendly and cooperative Psychomotor: no agitation or retardation noted Speech: clear, normal rate/rhythm/volume, spontaneous TP: linear TC: worried as to why he was confused Mood: much better Affect: congruent, brightens up and smiles often SI: denies HI: denies VH/AH: none- he reports flashback but these are not psychotic in nature Delusions: none Insight/judgment: fair x 2. Memory/cog: alert, oriented x 3. reports memory changes including forgetfulness and confusions. pending moca/acl Diagnostics Vital Signs (24Hr): Vital Signs - 24 hr 08/30/23 11:00 08/30/23 14:30 08/30/23 14:30 Temperature 97.6 F 97.6 F 97.6 F Pulse Rate 78 74 Respiratory Rate 14 14 Blood Pressure 123/58 L 110/56 L 110/56 L Pulse Oximetry 95 97 97 Oxygen Delivery Method Room Air Room Air Room Air 08/30/23 19:54 08/30/23 22:00 Temperature 98.0 F 98.0 F Pulse Rate 79 94 Respiratory Rate 16 16 Blood Pressure 115/67 115/67 Pulse Oximetry 94 94 Oxygen Delivery Method Room Air Room Air BMI result Body Mass Index 21.7 Labs 08/30/23 09:51 08/30/23 09:51 Labs: Laboratory Results - last 48 hr 08/30/23 08/30/23 08:01 09:51 WBC 5.3 RBC 4.11 L Hgb 11.9 L Hct 36.9 L MCV 89.8 MCH 29.0 MCHC 32.2 RDW 14.2 Plt Count 216 D MPV 10.6 Immature Gran % (Auto) 0.6 H Neut % (Auto) 67.9 Lymph % (Auto) 24.1 [place] % (Auto) 5.1 Eos % (Auto) 1.7 Baso % (Auto) 0.6 Lymph # (Auto) 1.3 [place] # (Auto) 0.3 Eos # (Auto) 0.1 Baso # (Auto) 0.0 Abs Immat Gran (auto) 0.03 Absolute Neuts (auto) 3.6 Absolute Nucleated RBC 0.000 Nucleated RBC % (auto) 0.0 Sodium 142 Potassium 4.1 Chloride 110 H Carbon Dioxide 21 L Anion Gap 15 BUN 12 Creatinine 2.15 H Estim Creat Clear Calc 32.3 Estimated GFR 31 Random Glucose 152 H Estimat Average Glucose 123 Hemoglobin A1c % 5.9 Uric Acid 10.8 H Calcium 9.6 Magnesium 1.6 Triglycerides 155 H Cholesterol 186 LDL Cholesterol, Calc 108 H HDL Cholesterol 47 Vitamin B12 < 148 L Folate 7.1 TSH 0.75 Free T4 0.83 Imaging Radiology Impressions: ITS Impressions Head CT 08/28/23 18:07 IMPRESSION: 1. No acute intracranial process seen. 2. Chronic right maxillary sinus inflammatory changes.. Chest X-Ray 08/29/23 09:16 IMPRESSION: No acute cardiopulmonary process. Head CT 08/30/23 14:30 IMPRESSION: 1. No evidence of acute intracranial hemorrhage or edematous territorial infarction. 2. Mild underlying microangiopathy and generalized cerebral volume loss. Chronic lacunar infarcts of the left cerebellar hemisphere. 3. Complete opacification of an atelectatic right maxillary sinus. Medications Medications Current Medications Acetaminophen (Acetaminophen 325 Mg Tablet) 650 mg PO Q6H PRN PRN Reason: pain Last Admin: 08/30/23 12:39 Dose: 650 mg Al Hydroxide/Mg Hydroxide (Magnesium Hydrox/Alum Hydrox 30 Ml Oral.Susp) 30 ml PO Q6H PRN PRN Reason: Heartburn/Nausea Atorvastatin Calcium (Atorvastatin Calcium 20 Mg Tablet) 20 mg PO BEDTIME RAULITO Last Admin: 08/30/23 20:39 Dose: 20 mg Buspirone HCl (Buspirone Hcl 10 Mg Tablet) 10 mg PO TID RAULITO Last Admin: 08/31/23 09:17 Dose: 10 mg Cyanocobalamin (Cyanocobalamin (Vitamin B-12) 1,000 Mcg/Ml Vial) 1,000 mcg IM Q7D [facility] Stop: 09/20/23 14:31 Last Admin: 08/30/23 15:33 Dose: 1,000 mcg Docusate Sodium (Docusate Sodium 100 Mg Capsule) 100 mg PO BID PRN PRN Reason: Constipation Ferrous Sulfate (Ferrous Sulfate 324 Mg Tablet.Dr) 324 mg PO DAILY [facility] Last Admin: 08/31/23 09:17 Dose: 324 mg Fluticasone/Vilanterol (Fluticasone/Vilanterol 100/25 Blst.W.Dev) 1 puff INHALE RDAILY [facility] Last Admin: 08/31/23 09:37 Dose: 1 puff Lamotrigine (Lamotrigine 100 Mg Tablet) 100 mg PO BEDTIME [facility] Last Admin: 08/30/23 20:39 Dose: 100 mg Magnesium Hydroxide (Milk Of Magnesia 30 Ml Oral.Susp) 30 ml PO DAILY PRN PRN Reason: Constipation Melatonin (Melatonin 3 Mg Tablet) 18 mg PO BEDTIME PRN PRN Reason: Insomnia Last Admin: 08/30/23 20:39 Dose: 18 mg Mirtazapine (Mirtazapine 30 Mg Tablet) 30 mg PO BEDTIME [facility] Last Admin: 08/30/23 20:39 Dose: 30 mg Multivitamins/Vitamin C (Multivitamin Tablet) 1 tab PO DAILY [facility] Last Admin: 08/31/23 09:17 Dose: 1 tab Nicotine (Nicotine 21 Mg Patch.Td24) 21 mg TRANSDERMA DAILY [facility] Last Admin: 08/31/23 09:20 Dose: 21 mg Pt Own (Diclofenac (Sodium 1 % Gel)) 4 gm TOPICAL QID [facility] Last Admin: 08/31/23 09:38 Dose: Not Given Pt Own ( Buprenorphine 20 Mcg /Hour Patch Weekly) 1 patch TRANSDERMA Q7D [facility] Last Admin: 08/29/23 17:38 Dose: 1 patch Non-Formulary Medication (Buprenorphine Hcl) 75 mcg BUCCAL Q12H PRN PRN Reason: acute pain Non-Formulary Medication (Febuxostat) 40 mg PO DAILY [facility] Prednisone (Prednisone 10 Mg Tablet) 40 mg PO DAILY [facility]; Taper Stop: 09/10/23 11:14 Last Admin: 08/31/23 09:17 Dose: 40 mg Quetiapine Fumarate (Quetiapine Fumarate 100 Mg Tablet) 100 mg PO BID PRN PRN Reason: voices/anxiety Last Admin: 08/31/23 09:36 Dose: 100 mg Quetiapine Fumarate (Quetiapine Fumarate 400 Mg Tablet) 800 mg PO BEDTIME [facility] Last Admin: 08/30/23 20:39 Dose: 800 mg Tiotropium [place] (Tiotropium [place] 2.5 Mcg 1 Puff/2.5 Mcg Mist.Inhal) 2 puff INHALE RDAILY [facility] Last Admin: 08/31/23 09:37 Dose: 2 puff Trazodone HCl (Trazodone Hcl 50 Mg Tablet) 50 mg PO BEDTIME MRX1 PRN PRN Reason: Insomnia Last Admin: 08/29/23 23:00 Dose: 50 mg Allergies Allergies Allergy/AdvReac Type Severity Reaction Status Date / Time codeine [CODEINE] Allergy Unknown ITCHING Verified 08/28/23 14:54 Assessment & Plan Assessment & Plan (1) Chronic post-traumatic stress disorder (PTSD) after combat: Status: Acute Code(s): F43.12 - Post-traumatic stress disorder, chronic; Z91.82 - Personal history of deployment (2) Cognitive decline: Status: Acute Code(s): R41.89 - Other symptoms and signs involving cognitive functions and awareness Plan Mr. Gupta is a 63 year-old male who was brought via EMS after found by GF confused and disoriented. He could not remember whether he had taken more medications than he should at bedtime. He denies suicide attempt or intentional overdose but he is not sure if he took more seroquel thinking he had not taken any at all. He also takes ambien which is known to cause amnesia and confusions. Also, of note, ambien can exacerbate flashbacks as he has noted in the past year or so since he started taking this medications. Other than, pt presents as future oriented and hoping he is as healthy as possible to continue engaging in activities that he enjoys. We discussed completing assessments to assess his memory. Noted very low B12 <200- will start cyanocobalamine 1000mcg IM qweekly x 4, then transition to oral. Head CT did show microvascular changes and atrophy- lacunar infarcts of left cerebellar hemisphere and microangiopathy. Will also complete MOCA/ACL. we had lengthy discussion about effects of ambien on memory/cognition. Will complete sleep study as he is worried that if he stops ambien, he may not sleep at all. Will continue seroquel for now. hold ambien. PLAN 1. continue current medications. Remeron increase to 30mg po qhs for depression and sleep. stop AMBIEN. head CT chronic lacunar infarcts of left cerebellar hemisphere and atrophy. pending MOCA/ACL to coorrelate with memory/cog changes. He did receive cyanocobalamine for b12 deficiency <200. Reason for continued inpatient stay Substantial Risk for: inability to function Time Spent With Patient Time: Total time managing care of this patient today ____ minutes.
[2023-08-31] MEDS: Sennosides/Docusate Sodium TABLET 1 TAB PO ×2 (14:32→20:39)
--- NOTE | 2023-08-31 15:37 | PC.NURSE ---
Raf signed 3 day notice. Up Mon09/05/23.
--- NOTE | 2023-08-31 16:03 | PC.NURSE ---
Pt participated in [facility] screen on this date, score 18/30, indicative of mild to moderate cognitive impairment. Nursing, and SW aware.
[2023-08-31 20:00] VITALS: BP 113/55; PULSE 87; RESP 18; TEMP 36.4; O2SAT 98
[2023-08-31] MEDS: QUEtiapine Fumarate 400 MG TABLET 800 MG PO (20:39)
[2023-08-31] MEDS: lamoTRIgine 100 MG TABLET PO (20:39)
[2023-08-31] MEDS: Atorvastatin Calcium 20 MG TABLET PO (20:39)
[2023-08-31] MEDS: Mirtazapine 30 MG TABLET PO (20:39)
[2023-09-01] MEDS: Nicotine 21 MG PATCH.TD24 TRANSDERMA (06:30)
[2023-09-01 07:40] VITALS: BP 121/60; PULSE 86; RESP 16; TEMP 36.4; O2SAT 95
[2023-09-01] MEDS: predniSONE 10 MG TABLET 30 MG PO (07:56)
[2023-09-01] MEDS: Ferrous Sulfate 324 MG TABLET.DR PO (07:56)
[2023-09-01] MEDS: busPIRone HCl 10 MG TABLET PO ×3 (07:56→21:27)
[2023-09-01] MEDS: Sennosides/Docusate Sodium TABLET 1 TAB PO ×2 (07:56→21:26)
[2023-09-01] MEDS: Multivitamin TABLET 1 TAB PO (07:56)
[2023-09-01] MEDS: QUEtiapine Fumarate 100 MG TABLET PO ×2 (08:08→12:40)
[2023-09-01] MEDS: Fluticasone/Vilanterol 100/25 BLST.W.DEV 1 PUFF INHALE (08:55)
[2023-09-01] MEDS: Tiotropium Bromide 2.5 mcg 1 PUFF/2.5 MCG MIST.INHAL 2 PUFF INHALE (08:57)
--- NOTE | 2023-09-01 14:56 | P.PNPSI_ITS ---
Subjective Subjective Date of Service: 09/01/23 Reason For Visit: OVERTAKING MEDS X1 WK,SLURR,ANASTACIO WEAK PER EMS Subjective Notes: Conditional Voluntary Interim History: Pt slept about 7hrs again last night. He reports flashbacks and at times voices later in the day telling him to harm himself. He denies any plan or intent to harm himself. MOCA 18/20 with severe impairments in executive function, recall although intact orientation and language. 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 Review of Systems Review of Systems knee pain no SOB no chest pain no GI concerns Yes all other systems are reviewed and are negative Mental Status Exam Mental Status Exam Narrative: Appearance: appears older than reported age. thin. no acute distress Behavior: friendly and cooperative Psychomotor: no agitation or retardation noted Speech: clear, normal rate/rhythm/volume, spontaneous TP: linear TC: worried as to why he was confused Mood: much better Affect: congruent, brightens up and smiles often SI: denies HI: denies VH/AH: none- he reports flashback but these are not psychotic in nature Delusions: none Insight/judgment: fair x 2. Memory/cog: alert, oriented x 3. reports memory changes including forgetfulness and confusions. pending moca/acl Diagnostics Vital Signs (24Hr): Vital Signs - 24 hr 08/31/23 20:00 09/01/23 07:40 Temperature 97.6 F 97.6 F Pulse Rate 87 86 Respiratory Rate 18 16 Blood Pressure 113/55 L 121/60 Pulse Oximetry 98 95 Oxygen Delivery Method Room Air Room Air BMI result Body Mass Index 21.9 Labs 08/30/23 09:51 08/30/23 09:51 Imaging Radiology Impressions: ITS Impressions Head CT 08/28/23 18:07 IMPRESSION: 1. No acute intracranial process seen. 2. Chronic right maxillary sinus inflammatory changes.. Chest X-Ray 08/29/23 09:16 IMPRESSION: No acute cardiopulmonary process. Head CT 08/30/23 14:30 IMPRESSION: 1. No evidence of acute intracranial hemorrhage or edematous territorial infarction. 2. Mild underlying microangiopathy and generalized cerebral volume loss. Chronic lacunar infarcts of the left cerebellar hemisphere. 3. Complete opacification of an atelectatic right maxillary sinus. Medications Medications Current Medications Acetaminophen (Acetaminophen 325 Mg Tablet) 650 mg PO Q6H PRN PRN Reason: pain Last Admin: 08/30/23 12:39 Dose: 650 mg Al Hydroxide/Mg Hydroxide (Magnesium Hydrox/Alum Hydrox 30 Ml Oral.Susp) 30 ml PO Q6H PRN PRN Reason: Heartburn/Nausea Atorvastatin Calcium (Atorvastatin Calcium 20 Mg Tablet) 20 mg PO BEDTIME [facility] Last Admin: 08/31/23 20:39 Dose: 20 mg Buspirone HCl (Buspirone Hcl 10 Mg Tablet) 10 mg PO TID [facility] Last Admin: 09/01/23 07:56 Dose: 10 mg Cyanocobalamin (Cyanocobalamin (Vitamin B-12) 1,000 Mcg/Ml Vial) 1,000 mcg IM Q7D [facility] Stop: 09/20/23 14:31 Last Admin: 08/30/23 15:33 Dose: 1,000 mcg Ferrous Sulfate (Ferrous Sulfate 324 Mg Tablet.Dr) 324 mg PO DAILY [facility] Last Admin: 09/01/23 07:56 Dose: 324 mg Fluticasone/Vilanterol (Fluticasone/Vilanterol 100/25 Blst.W.Dev) 1 puff INHALE RDAILY [facility] Last Admin: 09/01/23 08:55 Dose: 1 puff Lamotrigine (Lamotrigine 100 Mg Tablet) 100 mg PO BEDTIME [facility] Last Admin: 08/31/23 20:39 Dose: 100 mg Magnesium Hydroxide (Milk Of Magnesia 30 Ml Oral.Susp) 30 ml PO DAILY PRN PRN Reason: Constipation Melatonin (Melatonin 3 Mg Tablet) 18 mg PO BEDTIME PRN PRN Reason: Insomnia Last Admin: 08/30/23 20:39 Dose: 18 mg Mirtazapine (Mirtazapine 30 Mg Tablet) 30 mg PO BEDTIME [facility] Last Admin: 08/31/23 20:39 Dose: 30 mg Multivitamins/Vitamin C (Multivitamin Tablet) 1 tab PO DAILY [facility] Last Admin: 09/01/23 07:56 Dose: 1 tab Nicotine (Nicotine 21 Mg Patch.Td24) 21 mg TRANSDERMA DAILY [facility] Last Admin: 09/01/23 06:30 Dose: 21 mg Pt Own (Diclofenac (Sodium 1 % Gel)) 4 gm TOPICAL QID [facility] Last Admin: 09/01/23 14:15 Dose: Not Given Pt Own ( Buprenorphine 20 Mcg /Hour Patch Weekly) 1 patch TRANSDERMA Q7D [facility] Last Admin: 08/29/23 17:38 Dose: 1 patch Non-Formulary Medication (Buprenorphine Hcl) 75 mcg BUCCAL Q12H PRN PRN Reason: acute pain Non-Formulary Medication (Febuxostat) 40 mg PO DAILY [facility] Prednisone (Prednisone 10 Mg Tablet) 40 mg PO DAILY [facility]; Taper Stop: 09/10/23 11:14 Last Admin: 09/01/23 07:56 Dose: 40 mg Quetiapine Fumarate (Quetiapine Fumarate 100 Mg Tablet) 100 mg PO BID PRN PRN Reason: voices/anxiety Last Admin: 09/01/23 12:40 Dose: 100 mg Quetiapine Fumarate (Quetiapine Fumarate 400 Mg Tablet) 800 mg PO BEDTIME [facility] Last Admin: 08/31/23 20:39 Dose: 800 mg Senna/Docusate Sodium (Sennosides/Docusate Sodium Tablet) 1 tab PO BID [facility] Last Admin: 09/01/23 07:56 Dose: 1 tab Tiotropium [place] (Tiotropium [place] 2.5 Mcg 1 Puff/2.5 Mcg Mist.Inhal) 2 puff INHALE RDAILY [facility] Last Admin: 09/01/23 08:57 Dose: 2 puff Trazodone HCl (Trazodone Hcl 50 Mg Tablet) 50 mg PO BEDTIME MRX1 PRN PRN Reason: Insomnia Last Admin: 08/29/23 23:00 Dose: 50 mg Allergies Allergies Allergy/AdvReac Type Severity Reaction Status Date / Time codeine [CODEINE] Allergy Unknown ITCHING Verified 08/28/23 14:54 Assessment & Plan Assessment & Plan (1) Chronic post-traumatic stress disorder (PTSD) after combat: Status: Acute Code(s): F43.12 - Post-traumatic stress disorder, chronic; Z91.82 - Personal history of deployment (2) Cognitive decline: Status: Acute Code(s): R41.89 - Other symptoms and signs involving cognitive functions and awareness Plan Mr. Gupta is a 63 year-old male who was brought via EMS after found by GF confused and disoriented. He could not remember whether he had taken more medications than he should at bedtime. He denies suicide attempt or intentional overdose but he is not sure if he took more seroquel thinking he had not taken any at all. He also takes ambien which is known to cause amnesia and confusions. Also, of note, ambien can exacerbate flashbacks as he has noted in the past year or so since he started taking this medications. Other than, pt presents as future oriented and hoping he is as healthy as possible to continue engaging in activities that he enjoys. We discussed completing assessments to assess his memory. Noted very low B12 <200- will start cyanocobalamine 1000mcg IM qweekly x 4, then transition to oral. Head CT did show microvascular changes and atrophy- lacunar infarcts of left cerebellar hemisphere and microangiopathy. Will also complete MOCA/ACL. we had lengthy discussion about effects of ambien on memory/cognition. Will complete sleep study as he is worried that if he stops ambien, he may not sleep at all. Will continue seroquel for now. hold ambien. PLAN 1. continue current medications. Remeron increase to 30mg po qhs for depression and sleep. stop AMBIEN. head CT chronic lacunar infarcts of left cerebellar hemisphere and atrophy. pending MOCA/ACL to coorrelate with memory/cog changes. He did receive cyanocobalamine for b12 deficiency <200. / continue tx. MOCA 18 impairments in executive function/visuo spatial, recall, with fairly intact orientation and language consistent with vascular type of cognitive impairment. Reason for continued inpatient stay Substantial Risk for: inability to function Time Spent With Patient Time: Total time managing care of this patient today ____ minutes.
--- NOTE | 2023-09-01 19:22 | PC.NURSE ---
Buprenorphine transdermal patch remains in place on right scapula.
[2023-09-01 19:23] VITALS: BP 132/63; PULSE 83; TEMP 36.4; O2SAT 99
[2023-09-01] MEDS: QUEtiapine Fumarate 400 MG TABLET 800 MG PO (21:26)
[2023-09-01] MEDS: Atorvastatin Calcium 20 MG TABLET PO (21:26)
[2023-09-01] MEDS: Mirtazapine 30 MG TABLET PO (21:27)
[2023-09-01] MEDS: lamoTRIgine 100 MG TABLET PO (21:27)
[2023-09-02] MEDS: QUEtiapine Fumarate 100 MG TABLET PO (05:15)
[2023-09-02] MEDS: Nicotine 21 MG PATCH.TD24 TRANSDERMA (06:44)
--- NOTE | 2023-09-02 09:02 | HO.PSYCHPN ---
Subjective Subjective Date of Service: 09/02/23 Reason For Visit: OVERTAKING MEDS X1 WK,SLURR,ANASTACIO WEAK PER EMS Subjective Notes: 3 Day Interim History: Pt slept about 4 hrs. He reports feeling tired this morning. He denies SI/HI. He reports hearing voices at times. He reports this can be overwhelming. He hopes to return home very soon. He has been visible on the unit, social and pleasant on approach. Review of Systems Review of Systems knee pain no SOB no chest pain no GI concerns Yes all other systems are reviewed and are negative Mental Status Exam Mental Status Exam Narrative: Appearance: appears older than reported age. thin. no acute distress Behavior: friendly and cooperative Psychomotor: no agitation or retardation noted Speech: clear, normal rate/rhythm/volume, spontaneous TP: linear TC: worried as to why he was confused Mood: much better Affect: congruent, brightens up and smiles often SI: denies HI: denies VH/AH: none- he reports flashback but these are not psychotic in nature Delusions: none Insight/judgment: fair x 2. Memory/cog: alert, oriented x 3. reports memory changes including forgetfulness and confusions. pending moca/acl Diagnostics Vital Signs (24Hr): Vital Signs - 24 hr 09/01/23 19:23 Temperature 97.5 F Pulse Rate 83 Blood Pressure 132/63 Pulse Oximetry 99 Oxygen Delivery Method Room Air BMI result Body Mass Index 21.9 Labs 08/30/23 09:51 08/30/23 09:51 Imaging Radiology Impressions: ITS Impressions Head CT 08/28/23 18:07 IMPRESSION: 1. No acute intracranial process seen. 2. Chronic right maxillary sinus inflammatory changes.. Chest X-Ray 08/29/23 09:16 IMPRESSION: No acute cardiopulmonary process. Head CT 08/30/23 14:30 IMPRESSION: 1. No evidence of acute intracranial hemorrhage or edematous territorial infarction. 2. Mild underlying microangiopathy and generalized cerebral volume loss. Chronic lacunar infarcts of the left cerebellar hemisphere. 3. Complete opacification of an atelectatic right maxillary sinus. Medications Medications Current Medications Acetaminophen (Acetaminophen 325 Mg Tablet) 650 mg PO Q6H PRN PRN Reason: pain Last Admin: 08/30/23 12:39 Dose: 650 mg Al Hydroxide/Mg Hydroxide (Magnesium Hydrox/Alum Hydrox 30 Ml Oral.Susp) 30 ml PO Q6H PRN PRN Reason: Heartburn/Nausea Atorvastatin Calcium (Atorvastatin Calcium 20 Mg Tablet) 20 mg PO BEDTIME [facility] Last Admin: 09/01/23 21:26 Dose: 20 mg Buspirone HCl (Buspirone Hcl 10 Mg Tablet) 10 mg PO TID [facility] Last Admin: 09/01/23 21:27 Dose: 10 mg Cyanocobalamin (Cyanocobalamin (Vitamin B-12) 1,000 Mcg/Ml Vial) 1,000 mcg IM Q7D [facility] Stop: 09/20/23 14:31 Last Admin: 08/30/23 15:33 Dose: 1,000 mcg Ferrous Sulfate (Ferrous Sulfate 324 Mg Tablet.Dr) 324 mg PO DAILY [facility] Last Admin: 09/01/23 07:56 Dose: 324 mg Fluticasone/Vilanterol (Fluticasone/Vilanterol 100/25 Blst.W.Dev) 1 puff INHALE RDAILY [facility] Last Admin: 09/01/23 08:55 Dose: 1 puff Lamotrigine (Lamotrigine 100 Mg Tablet) 100 mg PO BEDTIME [facility] Last Admin: 09/01/23 21:27 Dose: 100 mg Magnesium Hydroxide (Milk Of Magnesia 30 Ml Oral.Susp) 30 ml PO DAILY PRN PRN Reason: Constipation Melatonin (Melatonin 3 Mg Tablet) 18 mg PO BEDTIME PRN PRN Reason: Insomnia Last Admin: 08/30/23 20:39 Dose: 18 mg Mirtazapine (Mirtazapine 30 Mg Tablet) 30 mg PO BEDTIME [facility] Last Admin: 09/01/23 21:27 Dose: 30 mg Multivitamins/Vitamin C (Multivitamin Tablet) 1 tab PO DAILY [facility] Last Admin: 09/01/23 07:56 Dose: 1 tab Nicotine (Nicotine 21 Mg Patch.Td24) 21 mg TRANSDERMA DAILY [facility] Last Admin: 09/02/23 06:44 Dose: 21 mg Pt Own (Diclofenac (Sodium 1 % Gel)) 4 gm TOPICAL QID [facility] Last Admin: 09/01/23 22:55 Dose: Not Given Pt Own ( Buprenorphine 20 Mcg /Hour Patch Weekly) 1 patch TRANSDERMA Q7D [facility] Last Admin: 08/29/23 17:38 Dose: 1 patch Non-Formulary Medication (Buprenorphine Hcl) 75 mcg BUCCAL Q12H PRN PRN Reason: acute pain Non-Formulary Medication (Febuxostat) 40 mg PO DAILY [facility] Prednisone (Prednisone 10 Mg Tablet) 40 mg PO DAILY [facility]; Taper Stop: 09/10/23 11:14 Last Admin: 09/01/23 07:56 Dose: 40 mg Quetiapine Fumarate (Quetiapine Fumarate 100 Mg Tablet) 100 mg PO BID PRN PRN Reason: voices/anxiety Last Admin: 09/02/23 05:15 Dose: 100 mg Quetiapine Fumarate (Quetiapine Fumarate 400 Mg Tablet) 800 mg PO BEDTIME [facility] Last Admin: 09/01/23 21:26 Dose: 800 mg Senna/Docusate Sodium (Sennosides/Docusate Sodium Tablet) 1 tab PO BID [facility] Last Admin: 09/01/23 21:26 Dose: 1 tab Tiotropium [place] (Tiotropium [place] 2.5 Mcg 1 Puff/2.5 Mcg Mist.Inhal) 2 puff INHALE RDAILY [facility] Last Admin: 09/01/23 08:57 Dose: 2 puff Trazodone HCl (Trazodone Hcl 50 Mg Tablet) 50 mg PO BEDTIME MRX1 PRN PRN Reason: Insomnia Last Admin: 08/29/23 23:00 Dose: 50 mg Allergies Allergies Allergy/AdvReac Type Severity Reaction Status Date / Time codeine [CODEINE] Allergy Unknown ITCHING Verified 08/28/23 14:54 Assessment & Plan Assessment & Plan (1) Chronic post-traumatic stress disorder (PTSD) after combat: Status: Acute Code(s): F43.12 - Post-traumatic stress disorder, chronic; Z91.82 - Personal history of deployment (2) Cognitive decline: Status: Acute Code(s): R41.89 - Other symptoms and signs involving cognitive functions and awareness Plan Mr. Gupta is a 63 year-old male who was brought via EMS after found by GF confused and disoriented. He could not remember whether he had taken more medications than he should at bedtime. He denies suicide attempt or intentional overdose but he is not sure if he took more seroquel thinking he had not taken any at all. He also takes ambien which is known to cause amnesia and confusions. Also, of note, ambien can exacerbate flashbacks as he has noted in the past year or so since he started taking this medications. Other than, pt presents as future oriented and hoping he is as healthy as possible to continue engaging in activities that he enjoys. We discussed completing assessments to assess his memory. Noted very low B12 <200- will start cyanocobalamine 1000mcg IM qweekly x 4, then transition to oral. Head CT did show microvascular changes and atrophy- lacunar infarcts of left cerebellar hemisphere and microangiopathy. Will also complete MOCA/ACL. we had lengthy discussion about effects of ambien on memory/cognition. Will complete sleep study as he is worried that if he stops ambien, he may not sleep at all. Will continue seroquel for now. hold ambien. PLAN 1. continue current medications. Remeron increase to 30mg po qhs for depression and sleep. stop AMBIEN. head CT chronic lacunar infarcts of left cerebellar hemisphere and atrophy. pending MOCA/ACL to coorrelate with memory/cog changes. He did receive cyanocobalamine for b12 deficiency <200. 09/01 added risperidone for voices, lowered seroquel. Reason for continued inpatient stay Substantial Risk for: inability to function Time Spent With Patient Time: Total time managing care of this patient today ____ minutes.
[2023-09-02 09:11] VITALS: BP 127/62; PULSE 81; RESP 16; TEMP 36.7; O2SAT 99
[2023-09-02] MEDS: Ferrous Sulfate 324 MG TABLET.DR PO (09:35)
[2023-09-02] MEDS: predniSONE 10 MG TABLET 30 MG PO (09:35)
[2023-09-02] MEDS: Sennosides/Docusate Sodium TABLET 1 TAB PO ×2 (09:35→20:10)
[2023-09-02] MEDS: busPIRone HCl 10 MG TABLET PO ×3 (09:35→20:10)
[2023-09-02] MEDS: Multivitamin TABLET 1 TAB PO (09:35)
[2023-09-02] MEDS: Tiotropium Bromide 2.5 mcg 1 PUFF/2.5 MCG MIST.INHAL 2 PUFF INHALE (09:36)
[2023-09-02] MEDS: Fluticasone/Vilanterol 100/25 BLST.W.DEV 1 PUFF INHALE (09:36)
[2023-09-02] MEDS: risperiDONE 1 MG TABLET PO ×2 (13:38→20:10)
[2023-09-02] MEDS: Acetaminophen 325 MG TABLET 650 MG PO (15:57)
--- NOTE | 2023-09-02 19:59 | PC.NURSE ---
Buprenorphine patch present on posterior right shoulder.
[2023-09-02 20:00] VITALS: BP 123/60; PULSE 80; RESP 16; TEMP 37.1; O2SAT 80
[2023-09-02] MEDS: Atorvastatin Calcium 20 MG TABLET PO (20:09)
[2023-09-02] MEDS: Melatonin 3 MG TABLET 12 MG PO (20:10)
[2023-09-02] MEDS: Mirtazapine 30 MG TABLET PO (20:10)
[2023-09-02] MEDS: lamoTRIgine 100 MG TABLET PO (20:10)
[2023-09-02] MEDS: Magnesium Oxide 400 MG TABLET PO (20:10)
[2023-09-02] MEDS: QUEtiapine Fumarate 400 MG TABLET PO (20:10)
[2023-09-03] MEDS: Nicotine 21 MG PATCH.TD24 TRANSDERMA (07:20)
[2023-09-03] MEDS: predniSONE 10 MG TABLET 30 MG PO (09:19)
[2023-09-03] MEDS: Multivitamin TABLET 1 TAB PO (09:19)
[2023-09-03] MEDS: risperiDONE 1 MG TABLET PO ×2 (09:19→20:49)
[2023-09-03] MEDS: Tiotropium Bromide 2.5 mcg 1 PUFF/2.5 MCG MIST.INHAL 2 PUFF INHALE (09:19)
[2023-09-03] MEDS: Fluticasone/Vilanterol 100/25 BLST.W.DEV 1 PUFF INHALE (09:19)
[2023-09-03] MEDS: busPIRone HCl 10 MG TABLET PO ×3 (09:20→20:49)
[2023-09-03] MEDS: Ferrous Sulfate 324 MG TABLET.DR PO (09:20)
[2023-09-03] MEDS: Sennosides/Docusate Sodium TABLET 1 TAB PO ×2 (09:20→20:49)
[2023-09-03] MEDS: Acetaminophen 325 MG TABLET 650 MG PO ×2 (10:59→18:49)
--- NOTE | 2023-09-03 11:00 | PC.NURSE ---
pt reports 9/10 bilateral knee pain. Pt reports topical diclofenac is ineffective and requests tylenol to manage 9/10 pain until new order may be obtained. Tylenol administered, provider notified, awaiting new order.
--- NOTE | 2023-09-03 11:02 | PC.NURSE ---
buprenorphine patch present on right scapula
[2023-09-03] MEDS: traMADoL HCL 50 MG TABLET PO (11:53)
[2023-09-03] MEDS: QUEtiapine Fumarate 100 MG TABLET PO (13:34)
[2023-09-03 14:31] VITALS: BP 143/67; PULSE 67; RESP 16; TEMP 36.7; O2SAT 98
--- NOTE | 2023-09-03 19:29 | HO.PSYCHPN ---
Subjective Subjective Date of Service: 09/03/23 Reason For Visit: OVERTAKING MEDS X1 WK,SLURR,ANASTACIO WEAK PER EMS Subjective Notes: Conditional Voluntary Interim History: Pt was better last night. He does report knee pain. He denies SI/HI. He reports hearing voices at times. He reports this can be overwhelming. He hopes to return home very soon. He has been visible on the unit, social and pleasant on approach. Review of Systems Review of Systems knee pain no SOB no chest pain no GI concerns Yes all other systems are reviewed and are negative Mental Status Exam Mental Status Exam Narrative: Appearance: appears older than reported age. thin. no acute distress Behavior: friendly and cooperative Psychomotor: no agitation or retardation noted Speech: clear, normal rate/rhythm/volume, spontaneous TP: linear TC: worried as to why he was confused Mood: much better Affect: congruent, brightens up and smiles often SI: denies HI: denies VH/AH: none- he reports flashback but these are not psychotic in nature Delusions: none Insight/judgment: fair x 2. Memory/cog: alert, oriented x 3. reports memory changes including forgetfulness and confusions. pending moca/acl Diagnostics Vital Signs (24Hr): Vital Signs - 24 hr 09/02/23 20:00 09/03/23 14:31 Temperature 98.8 F 98.0 F Pulse Rate 80 67 Respiratory Rate 16 16 Blood Pressure 123/60 143/67 H Pulse Oximetry 80 L 98 Oxygen Delivery Method Room Air Room Air BMI result Body Mass Index 21.9 Labs 08/30/23 09:51 08/30/23 09:51 Imaging Radiology Impressions: ITS Impressions Head CT 08/28/23 18:07 IMPRESSION: 1. No acute intracranial process seen. 2. Chronic right maxillary sinus inflammatory changes.. Chest X-Ray 08/29/23 09:16 IMPRESSION: No acute cardiopulmonary process. Head CT 08/30/23 14:30 IMPRESSION: 1. No evidence of acute intracranial hemorrhage or edematous territorial infarction. 2. Mild underlying microangiopathy and generalized cerebral volume loss. Chronic lacunar infarcts of the left cerebellar hemisphere. 3. Complete opacification of an atelectatic right maxillary sinus. Medications Medications Current Medications Acetaminophen (Acetaminophen 325 Mg Tablet) 650 mg PO Q6H PRN PRN Reason: pain Last Admin: 09/03/23 18:49 Dose: 650 mg Al Hydroxide/Mg Hydroxide (Magnesium Hydrox/Alum Hydrox 30 Ml Oral.Susp) 30 ml PO Q6H PRN PRN Reason: Heartburn/Nausea Atorvastatin Calcium (Atorvastatin Calcium 20 Mg Tablet) 20 mg PO BEDTIME [facility] Last Admin: 09/02/23 20:09 Dose: 20 mg Buspirone HCl (Buspirone Hcl 10 Mg Tablet) 10 mg PO TID [facility] Last Admin: 09/03/23 15:33 Dose: 10 mg Cyanocobalamin (Cyanocobalamin (Vitamin B-12) 1,000 Mcg/Ml Vial) 1,000 mcg IM Q7D [facility] Stop: 09/20/23 14:31 Last Admin: 08/30/23 15:33 Dose: 1,000 mcg Ferrous Sulfate (Ferrous Sulfate 324 Mg Tablet.Dr) 324 mg PO DAILY [facility] Last Admin: 09/03/23 09:20 Dose: 324 mg Fluticasone/Vilanterol (Fluticasone/Vilanterol 100/25 Blst.W.Dev) 1 puff INHALE RDAILY [facility] Last Admin: 09/03/23 09:19 Dose: 1 puff Lamotrigine (Lamotrigine 100 Mg Tablet) 100 mg PO BEDTIME [facility] Last Admin: 09/02/23 20:10 Dose: 100 mg Magnesium Hydroxide (Milk Of Magnesia 30 Ml Oral.Susp) 30 ml PO DAILY PRN PRN Reason: Constipation Magnesium Oxide (Magnesium Oxide 400 Mg Tablet) 400 mg PO BEDTIME [facility] Last Admin: 09/02/23 20:10 Dose: 400 mg Melatonin (Melatonin 3 Mg Tablet) 12 mg PO BEDTIME [facility] Last Admin: 09/02/23 20:10 Dose: 12 mg Mirtazapine (Mirtazapine 30 Mg Tablet) 30 mg PO BEDTIME [facility] Last Admin: 09/02/23 20:10 Dose: 30 mg Multivitamins/Vitamin C (Multivitamin Tablet) 1 tab PO DAILY [facility] Last Admin: 09/03/23 09:19 Dose: 1 tab Nicotine (Nicotine 21 Mg Patch.Td24) 21 mg TRANSDERMA DAILY [facility] Last Admin: 09/03/23 07:20 Dose: 21 mg Pt Own (Diclofenac (Sodium 1 % Gel)) 4 gm TOPICAL QID [facility] Last Admin: 09/03/23 17:11 Dose: Not Given Pt Own ( Buprenorphine 20 Mcg /Hour Patch Weekly) 1 patch TRANSDERMA Q7D [facility] Last Admin: 08/29/23 17:38 Dose: 1 patch Prednisone (Prednisone 10 Mg Tablet) 40 mg PO DAILY [facility]; Taper Stop: 09/10/23 11:14 Last Admin: 09/03/23 09:19 Dose: 40 mg Quetiapine Fumarate (Quetiapine Fumarate 100 Mg Tablet) 100 mg PO BID PRN PRN Reason: voices/anxiety Last Admin: 09/03/23 13:34 Dose: 100 mg Quetiapine Fumarate (Quetiapine Fumarate 400 Mg Tablet) 400 mg PO BEDTIME [facility] Last Admin: 09/02/23 20:10 Dose: 400 mg Risperidone (Risperidone 1 Mg Tablet) 1 mg PO BID [facility] Last Admin: 09/03/23 09:19 Dose: 1 mg Senna/Docusate Sodium (Sennosides/Docusate Sodium Tablet) 1 tab PO BID [facility] Last Admin: 09/03/23 09:20 Dose: 1 tab Tiotropium [place] (Tiotropium [place] 2.5 Mcg 1 Puff/2.5 Mcg Mist.Inhal) 2 puff INHALE RDAILY [facility] Last Admin: 09/03/23 09:19 Dose: 2 puff Trazodone HCl (Trazodone Hcl 50 Mg Tablet) 50 mg PO BEDTIME MRX1 PRN PRN Reason: Insomnia Last Admin: 08/29/23 23:00 Dose: 50 mg Allergies Allergies Allergy/AdvReac Type Severity Reaction Status Date / Time codeine [CODEINE] Allergy Unknown ITCHING Verified 08/28/23 14:54 Assessment & Plan Assessment & Plan (1) Chronic post-traumatic stress disorder (PTSD) after combat: Status: Acute Code(s): F43.12 - Post-traumatic stress disorder, chronic; Z91.82 - Personal history of deployment (2) Cognitive decline: Status: Acute Code(s): R41.89 - Other symptoms and signs involving cognitive functions and awareness Plan Mr. Gupta is a 63 year-old male who was brought via EMS after found by GF confused and disoriented. He could not remember whether he had taken more medications than he should at bedtime. He denies suicide attempt or intentional overdose but he is not sure if he took more seroquel thinking he had not taken any at all. He also takes ambien which is known to cause amnesia and confusions. Also, of note, ambien can exacerbate flashbacks as he has noted in the past year or so since he started taking this medications. Other than, pt presents as future oriented and hoping he is as healthy as possible to continue engaging in activities that he enjoys. We discussed completing assessments to assess his memory. Noted very low B12 <200- will start cyanocobalamine 1000mcg IM qweekly x 4, then transition to oral. Head CT did show microvascular changes and atrophy- lacunar infarcts of left cerebellar hemisphere and microangiopathy. Will also complete MOCA/ACL. we had lengthy discussion about effects of ambien on memory/cognition. Will complete sleep study as he is worried that if he stops ambien, he may not sleep at all. Will continue seroquel for now. hold ambien. PLAN 1. continue current medications. Remeron increase to 30mg po qhs for depression and sleep. stop AMBIEN. head CT chronic lacunar infarcts of left cerebellar hemisphere and atrophy. pending MOCA/ACL to coorrelate with memory/cog changes. He did receive cyanocobalamine for b12 deficiency <200. 08/31 continue tx. MOCA 18 impairments in executive function/visuo spatial, recall, with fairly intact orientation and language consistent with vascular type of cognitive impairment. 09/01 risperidone added for voices, along with magnesium for sleep. 09/02 continue tx. Reason for continued inpatient stay Substantial Risk for: inability to function Time Spent With Patient Time: Total time managing care of this patient today ____ minutes.
[2023-09-03 20:00] VITALS: BP 130/62; PULSE 80; RESP 16; TEMP 36.7; O2SAT 98
[2023-09-03] MEDS: traZODone HCL 50 MG TABLET PO (20:49)
[2023-09-03] MEDS: Atorvastatin Calcium 20 MG TABLET PO (20:49)
[2023-09-03] MEDS: lamoTRIgine 100 MG TABLET PO (20:49)
[2023-09-03] MEDS: QUEtiapine Fumarate 400 MG TABLET PO (20:49)
[2023-09-03] MEDS: Mirtazapine 30 MG TABLET PO (20:49)
[2023-09-03] MEDS: Magnesium Oxide 400 MG TABLET PO (20:49)
[2023-09-03] MEDS: Melatonin 3 MG TABLET 12 MG PO (20:50)
[2023-09-04 08:00] VITALS: BP 119/71; PULSE 70; TEMP 36.7; O2SAT 98
[2023-09-04] MEDS: Tiotropium Bromide 2.5 mcg 1 PUFF/2.5 MCG MIST.INHAL 2 PUFF INHALE (08:23)
[2023-09-04] MEDS: Fluticasone/Vilanterol 100/25 BLST.W.DEV 1 PUFF INHALE (08:23)
[2023-09-04] MEDS: Nicotine 21 MG PATCH.TD24 TRANSDERMA (08:24)
[2023-09-04] MEDS: Sennosides/Docusate Sodium TABLET 1 TAB PO ×2 (08:24→20:27)
[2023-09-04] MEDS: predniSONE 10 MG TABLET 30 MG PO (08:24)
[2023-09-04] MEDS: Ferrous Sulfate 324 MG TABLET.DR PO (08:25)
[2023-09-04] MEDS: busPIRone HCl 10 MG TABLET PO ×3 (08:25→20:28)
[2023-09-04] MEDS: Multivitamin TABLET 1 TAB PO (08:25)
[2023-09-04] MEDS: QUEtiapine Fumarate 100 MG TABLET PO (08:25)
[2023-09-04] MEDS: risperiDONE 1 MG TABLET PO ×2 (08:25→20:26)
--- NOTE | 2023-09-04 10:34 | HO.PSYCHPN ---
Subjective Subjective Date of Service: 09/04/23 Reason For Visit: OVERTAKING MEDS X1 WK,SLURR,ANASTACIO WEAK PER EMS Subjective Notes: Conditional Voluntary and 3 Day Interim History: Pt slept most of the night. No behavioral concerns. He reports less AH. He reports he is hoping to go home soon. No SI/HI. 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 Review of Systems Review of Systems knee pain no SOB no chest pain no GI concerns Yes all other systems are reviewed and are negative Mental Status Exam Mental Status Exam Narrative: Appearance: appears older than reported age. thin. no acute distress Behavior: friendly and cooperative Psychomotor: no agitation or retardation noted Speech: clear, normal rate/rhythm/volume, spontaneous TP: linear TC: worried as to why he was confused Mood: much better Affect: congruent, brightens up and smiles often SI: denies HI: denies VH/AH: none- he reports flashback but these are not psychotic in nature Delusions: none Insight/judgment: fair x 2. Memory/cog: alert, oriented x 3. reports memory changes including forgetfulness and confusions. pending moca/acl Diagnostics Vital Signs (24Hr): Vital Signs - 24 hr 09/03/23 14:31 09/03/23 20:00 09/04/23 08:00 Temperature 98.0 F 98.0 F 98.1 F Pulse Rate 67 80 70 Respiratory Rate 16 16 Blood Pressure 143/67 H 130/62 119/71 Pulse Oximetry 98 98 98 Oxygen Delivery Method Room Air Room Air Room Air BMI result Body Mass Index 21.9 Labs 08/30/23 09:51 08/30/23 09:51 Imaging Radiology Impressions: ITS Impressions Head CT 08/28/23 18:07 IMPRESSION: 1. No acute intracranial process seen. 2. Chronic right maxillary sinus inflammatory changes.. Chest X-Ray 08/29/23 09:16 IMPRESSION: No acute cardiopulmonary process. Head CT 08/30/23 14:30 IMPRESSION: 1. No evidence of acute intracranial hemorrhage or edematous territorial infarction. 2. Mild underlying microangiopathy and generalized cerebral volume loss. Chronic lacunar infarcts of the left cerebellar hemisphere. 3. Complete opacification of an atelectatic right maxillary sinus. Medications Medications Current Medications Acetaminophen (Acetaminophen 325 Mg Tablet) 650 mg PO Q6H PRN PRN Reason: pain Last Admin: 09/03/23 18:49 Dose: 650 mg Al Hydroxide/Mg Hydroxide (Magnesium Hydrox/Alum Hydrox 30 Ml Oral.Susp) 30 ml PO Q6H PRN PRN Reason: Heartburn/Nausea Atorvastatin Calcium (Atorvastatin Calcium 20 Mg Tablet) 20 mg PO BEDTIME [facility] Last Admin: 09/03/23 20:49 Dose: 20 mg Buspirone HCl (Buspirone Hcl 10 Mg Tablet) 10 mg PO TID [facility] Last Admin: 09/04/23 08:25 Dose: 10 mg Cyanocobalamin (Cyanocobalamin (Vitamin B-12) 1,000 Mcg/Ml Vial) 1,000 mcg IM Q7D [facility] Stop: 09/20/23 14:31 Last Admin: 08/30/23 15:33 Dose: 1,000 mcg Ferrous Sulfate (Ferrous Sulfate 324 Mg Tablet.Dr) 324 mg PO DAILY [facility] Last Admin: 09/04/23 08:25 Dose: 324 mg Fluticasone/Vilanterol (Fluticasone/Vilanterol 100/25 Blst.W.Dev) 1 puff INHALE RDAILY [facility] Last Admin: 09/04/23 08:23 Dose: 1 puff Lamotrigine (Lamotrigine 100 Mg Tablet) 100 mg PO BEDTIME [facility] Last Admin: 09/03/23 20:49 Dose: 100 mg Magnesium Hydroxide (Milk Of Magnesia 30 Ml Oral.Susp) 30 ml PO DAILY PRN PRN Reason: Constipation Magnesium Oxide (Magnesium Oxide 400 Mg Tablet) 400 mg PO BEDTIME [facility] Last Admin: 09/03/23 20:49 Dose: 400 mg Melatonin (Melatonin 3 Mg Tablet) 12 mg PO BEDTIME [facility] Last Admin: 09/03/23 20:50 Dose: 12 mg Mirtazapine (Mirtazapine 30 Mg Tablet) 30 mg PO BEDTIME [facility] Last Admin: 09/03/23 20:49 Dose: 30 mg Multivitamins/Vitamin C (Multivitamin Tablet) 1 tab PO DAILY [facility] Last Admin: 09/04/23 08:25 Dose: 1 tab Nicotine (Nicotine 21 Mg Patch.Td24) 21 mg TRANSDERMA DAILY [facility] Last Admin: 09/04/23 08:24 Dose: 21 mg Pt Own (Diclofenac (Sodium 1 % Gel)) 4 gm TOPICAL QID [facility] Last Admin: 09/04/23 08:26 Dose: Not Given Pt Own ( Buprenorphine 20 Mcg /Hour Patch Weekly) 1 patch TRANSDERMA Q7D [facility] Last Admin: 08/29/23 17:38 Dose: 1 patch Prednisone (Prednisone 10 Mg Tablet) 40 mg PO DAILY [facility]; Taper Stop: 09/10/23 11:14 Last Admin: 09/04/23 08:24 Dose: 40 mg Quetiapine Fumarate (Quetiapine Fumarate 100 Mg Tablet) 100 mg PO BID PRN PRN Reason: voices/anxiety Last Admin: 09/04/23 08:25 Dose: 100 mg Quetiapine Fumarate (Quetiapine Fumarate 400 Mg Tablet) 400 mg PO BEDTIME [facility] Last Admin: 09/03/23 20:49 Dose: 400 mg Risperidone (Risperidone 1 Mg Tablet) 1 mg PO BID [facility] Last Admin: 09/04/23 08:25 Dose: 1 mg Senna/Docusate Sodium (Sennosides/Docusate Sodium Tablet) 1 tab PO BID [facility] Last Admin: 09/04/23 08:24 Dose: 1 tab Tiotropium [place] (Tiotropium [place] 2.5 Mcg 1 Puff/2.5 Mcg Mist.Inhal) 2 puff INHALE RDAILY [facility] Last Admin: 09/04/23 08:23 Dose: 2 puff Trazodone HCl (Trazodone Hcl 50 Mg Tablet) 50 mg PO BEDTIME MRX1 PRN PRN Reason: Insomnia Last Admin: 09/03/23 20:49 Dose: 50 mg Allergies Allergies Allergy/AdvReac Type Severity Reaction Status Date / Time codeine [CODEINE] Allergy Unknown ITCHING Verified 08/28/23 14:54 Assessment & Plan Assessment & Plan (1) Chronic post-traumatic stress disorder (PTSD) after combat: Status: Acute Code(s): F43.12 - Post-traumatic stress disorder, chronic; Z91.82 - Personal history of deployment (2) Cognitive decline: Status: Acute Code(s): R41.89 - Other symptoms and signs involving cognitive functions and awareness Plan Mr. Gupta is a 63 year-old male who was brought via EMS after found by GF confused and disoriented. He could not remember whether he had taken more medications than he should at bedtime. He denies suicide attempt or intentional overdose but he is not sure if he took more seroquel thinking he had not taken any at all. He also takes ambien which is known to cause amnesia and confusions. Also, of note, ambien can exacerbate flashbacks as he has noted in the past year or so since he started taking this medications. Other than, pt presents as future oriented and hoping he is as healthy as possible to continue engaging in activities that he enjoys. We discussed completing assessments to assess his memory. Noted very low B12 <200- will start cyanocobalamine 1000mcg IM qweekly x 4, then transition to oral. Head CT did show microvascular changes and atrophy- lacunar infarcts of left cerebellar hemisphere and microangiopathy. Will also complete MOCA/ACL. we had lengthy discussion about effects of ambien on memory/cognition. Will complete sleep study as he is worried that if he stops ambien, he may not sleep at all. Will continue seroquel for now. hold ambien. PLAN 1. continue current medications. Remeron increase to 30mg po qhs for depression and sleep. stop AMBIEN. head CT chronic lacunar infarcts of left cerebellar hemisphere and atrophy. pending MOCA/ACL to coorrelate with memory/cog changes. He did receive cyanocobalamine for b12 deficiency <200. 08/31 continue tx. MOCA 18 impairments in executive function/visuo spatial, recall, with fairly intact orientation and language consistent with vascular type of cognitive impairment. 09/01 risperidone added for voices, along with magnesium for sleep. 09/02 continue tx. 09/03 continue tx. Reason for continued inpatient stay Substantial Risk for: inability to function Time Spent With Patient Time: Total time managing care of this patient today ____ minutes.
[2023-09-04] MEDS: Acetaminophen 325 MG TABLET 650 MG PO (11:50)
[2023-09-04 20:00] VITALS: BP 123/58; PULSE 63; RESP 18; TEMP 37.2; O2SAT 98
[2023-09-04] MEDS: traZODone HCL 50 MG TABLET PO (20:26)
[2023-09-04] MEDS: QUEtiapine Fumarate 300 MG TABLET 600 MG PO (20:26)
[2023-09-04] MEDS: Melatonin 3 MG TABLET 12 MG PO (20:27)
[2023-09-04] MEDS: Magnesium Oxide 400 MG TABLET PO (20:27)
[2023-09-04] MEDS: Atorvastatin Calcium 20 MG TABLET PO (20:27)
[2023-09-04] MEDS: lamoTRIgine 100 MG TABLET PO (20:28)
[2023-09-04] MEDS: Mirtazapine 30 MG TABLET PO (20:28)
[2023-09-05 08:00] VITALS: BP 129/60; PULSE 70; RESP 18; TEMP 36.9; O2SAT 98
[2023-09-05] MEDS: predniSONE 10 MG TABLET 30 MG PO (08:11)
[2023-09-05] MEDS: Multivitamin TABLET 1 TAB PO (08:12)
[2023-09-05] MEDS: Ferrous Sulfate 324 MG TABLET.DR PO (08:12)
[2023-09-05] MEDS: busPIRone HCl 10 MG TABLET PO (08:12)
[2023-09-05] MEDS: Sennosides/Docusate Sodium TABLET 1 TAB PO (08:12)
[2023-09-05] MEDS: risperiDONE 1 MG TABLET PO (08:12)
[2023-09-05] MEDS: Tiotropium Bromide 2.5 mcg 1 PUFF/2.5 MCG MIST.INHAL 2 PUFF INHALE (08:49)
[2023-09-05] MEDS: Fluticasone/Vilanterol 100/25 BLST.W.DEV 1 PUFF INHALE (08:49)
--- NOTE | 2023-09-05 10:09 | PM.PSYDC ---
DS: Providers Provider Date of Service: 09/05/23 Date of admission: 08/29/23 17:15 Primary care physician: Unknown Physician Consults: 08/30/23 08:48 Consult to Hospitalist Routine Comment: Consulting Provider: Hospitalist Reason For Exam: gout flare DS: Diagnosis Discharge Diagnosis (1) Chronic post-traumatic stress disorder (PTSD) after combat: Status: Acute (2) Cognitive decline: Status: Acute DS: Medications Discharge Medications Home Medications: Home Medications ?Medication ?Instructions ?Recorded ?Confirmed acetaminophen 500 mg tablet 500 mg PO Q6H PRN pain 08/29/23 08/29/23 atorvastatin 20 mg tablet 20 mg PO BEDTIME 08/29/23 08/29/23 benztropine 1 mg tablet 1 mg PO BID PRN EPS 08/29/23 08/29/23 buprenorphine 20 mcg/hour weekly 1 patch transdermal QWEEK 08/29/23 08/29/23 transdermal patch buprenorphine HCl 75 mcg buccal 75 mcg buccal Q12H PRN acute pain 08/29/23 08/29/23 film buspirone 10 mg tablet 10 mg PO TID 08/29/23 08/29/23 diclofenac sodium 1 % topical gel 4 g topical QID 08/29/23 08/29/23 docusate sodium 100 mg capsule 100 mg PO BID PRN Constipation 08/29/23 08/29/23 febuxostat 40 mg tablet 40 mg PO DAILY 08/29/23 08/29/23 ferrous gluconate 324 mg (37.5 mg 324 mg PO DAILY 08/29/23 08/29/23 iron) tablet fluticasone 250 mcg-salmeterol 50 1 inh inhalation BID 08/29/23 08/29/23 mcg/dose blistr powdr for inhalation lamotrigine 100 mg tablet 100 mg PO BEDTIME 08/29/23 08/29/23 melatonin 5 mg tablet 20 mg PO BEDTIME PRN Insomnia 08/29/23 08/29/23 mirtazapine 15 mg tablet 15 mg PO BEDTIME 08/29/23 08/29/23 multivitamin 1 tab PO DAILY 08/29/23 08/29/23 nicotine 21 mg/24 hr daily 1 patch transdermal DAILY 08/29/23 08/29/23 transdermal patch prednisone 10 mg tablet 10 mg PO DAILY PRN gout attack 08/29/23 08/29/23 quetiapine 100 mg tablet 100 mg PO BID PRN voices/anxiety 08/29/23 08/29/23 quetiapine 400 mg tablet 800 mg PO BEDTIME 08/29/23 08/29/23 sildenafil 100 mg tablet 100 mg PO DAILY PRN Erectile 08/29/23 08/29/23 Dysfunction tiotropium bromide 2.5 2 puff inhalation DAILY 08/29/23 08/29/23 mcg/actuation mist for inhalation Data Data Completed and Pending Completed studies during hospitalization [Text1]: 08/29/23 08/30/23 08/30/23 09:37 08:01 09:51 WBC 5.3 RBC 4.11 L Hgb 11.9 L Hct 36.9 L MCV 89.8 MCH 29.0 MCHC 32.2 RDW 14.2 Plt Count 216 D MPV 10.6 Immature Gran % (Auto) 0.6 H Neut % (Auto) 67.9 Lymph % (Auto) 24.1 Thayer % (Auto) 5.1 Eos % (Auto) 1.7 Baso % (Auto) 0.6 Lymph # (Auto) 1.3 Thayer # (Auto) 0.3 Eos # (Auto) 0.1 Baso # (Auto) 0.0 Abs Immat Gran (auto) 0.03 Absolute Neuts (auto) 3.6 Absolute Nucleated RBC 0.000 Nucleated RBC % (auto) 0.0 Sodium 143 142 Potassium 4.2 4.1 Chloride 114 H 110 H Carbon Dioxide 20 L 21 L Anion Gap 13 15 BUN 12 12 Creatinine 1.87 H 2.15 H Estim Creat Clear Calc 37.2 32.3 Estimated GFR 36 31 Random Glucose 109 152 H Estimat Average Glucose 123 Hemoglobin A1c % 5.9 Uric Acid 10.8 H Calcium 9.1 9.6 Magnesium 1.6 Triglycerides 155 H Cholesterol 186 LDL Cholesterol, Calc 108 H HDL Cholesterol 47 Vitamin B12 < 148 L Folate 7.1 TSH 0.75 Free T4 0.83 Imaging Diagnostic Imaging Impressions Head CT 08/28/23 18:07 IMPRESSION: 1. No acute intracranial process seen. 2. Chronic right maxillary sinus inflammatory changes.. Chest X-Ray 08/29/23 09:16 IMPRESSION: No acute cardiopulmonary process. Head CT 08/30/23 14:30 IMPRESSION: 1. No evidence of acute intracranial hemorrhage or edematous territorial infarction. 2. Mild underlying microangiopathy and generalized cerebral volume loss. Chronic lacunar infarcts of the left cerebellar hemisphere. 3. Complete opacification of an atelectatic right maxillary sinus. DS: Summary Hospital Course Hospital Course: Mr. Gupta is a 63 year-old male who was brought via EMS after GF found him confused. He did not know whether he had taken more of his medications at bedtime. He is prescribed combination of seroquel and ambien. In the ED, utox positive for benzo and THC. CBC with normocytic anemia, no leukocytosis. CMP initially with increased Cr. 2.39, that went down to 1.87. BUN wnl 16. Creatinine clearance 37.2. On the unit, pt presents as pleasant and cooperative. He denies suicidal or homicidal ideation. He also denies he had an intentional overdose or that he was having suicidal ideation prior to being found confused. He states he has been struggling with his memory and at times wondering if he has taken his medications at night or not. He also reports he has noticed being more forgetful. He reports that for the past year he has been having more hallucinations. 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 He states he has always had flashbacks of past combat memories but now they have been more intense. He reports his sleep has improved with ambien which he has been taking for about one year or so. He reports his life overall is going well and he wants to be as healthy as he can to live as long as he can. Past Psychiatric History: Inpatient: pt reports he has had about 5-8 inpatient admissions throughout his life after he served in the . He thinks his last admission was 5 years ago. He denies hx of suicide attempts HOSPITAL COURSE On the unit, pt was admitted on a CV and placed on 15 minutes checks for safety. Pt adamantly denied suicidal or homicidal ideation. He reported he got confused night prior to coming to the hospital and did not know if he had taken his medications or not. He reports long history of flashbacks related to combat trauma. He also reports hearing some voices in evening telling him to hurt himself. He did not present with delusions. He reports his sleep is disrupted and he has been on ambien for about one year. He reports flashbacks have been stronger and more vivid for about one year. Of note, ambien can exacerbate trauma memories. We did discuss ambien increasing risk of confusion and cognitive impairments. He reported as well as family concerns in terms of his memory and cognitive. His head CT did show atrophy, microvascular changes, lacunar infarct on right cerebellum. His b12 was very low (which can also contribute to memory impairments), less than 200 and he was started on cyanocobalamine 1000mcg IM weekly for 4 weeks then transition to oral b12. His MOCA showed significant (severe) impairments in executive function, visuo spatial skills, recall. His attention is intact. Language and attention also intact. His pattern of cognitive impairment does seem to be consistent with a vascular type of dementia. This information was communicated to his daughter. We had a long discussion in terms of concerns about ambien in that it increases confusion, causes amnesia and for the most part person may think they slept well. During this admission, pt had exacerbation of gout. He was seen by hospitalist and started on prednisone taper. He had 40mg po daily x 5 days. He had first dose of prednisone 30mg and needs another dose of 30mg on 09/05. Then prednisone 20mg daily for 09/06 and 09/07, then prednisone 10mg daily on 09/08 and 09/09, then stop. He may benefit from allopurinol. He had sleep study while on the unit, which was negative for apnea. Ambien was stopped. His remeron was increased to 30mg po qhs. He was continued on seroquel. However, pt had reported still hearing some voices, which do seem more trauma related but still he was started on risperidone. He was worried about not being able to sleep without seroquel, so it was continued. He also uses seroquel during the day for increased anxiety/flashback with good effect. He was continued on buspar and lamictal- however, their therapeutic benefit is unclear. Status at Discharge Cognitive/behavioral status at discharge: Pt with brighter, non labile affect. No SI/HI. intermittent flashbacks, some voices, but seem to have decrease. Functional status at discharge: independent ambulation Overall status at discharge: patient is progressing back to baseline Time Spent with Patient Time attestation: Total time managing care of this patient today ____ minutes. 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 Referrals: [facility] with Emanuel So [Other] - 09/08/23 9:30 am (Home visit. ) [facility] [Other] - 09/06/23 (Home visit.) Primary Care w Vivienne Lorenz [Other] - 10/11/23 10:30 am [facility] [Other] - 1 Week (This is for medical appts only. An additional # [phone] ) [facility] [Other] - 1 Week Barbara [facility] [Other] - 1 Week (This person is a support person through your insurance. ) Discharge Medications: New nicotine 21 mg/24 hr Patch 24 Hour 21 mg transdermal DAILY Qty: 0 0RF Spiriva Respimat 2.5 mcg/actuation Mist 2 puff inhalation RDAILY Qty: 0 0RF atorvastatin 20 mg Tablet 20 mg PO BEDTIME Qty: 0 0RF quetiapine 300 mg Tablet 600 mg PO BEDTIME Qty: 0 0RF sennosides-docusate sodium [Senna Plus] 8.6-50 mg Tablet 1 tab PO BID Qty: 0 0RF quetiapine 100 mg Tablet 100 mg PO BID PRN (Reason: voices/anxiety) Qty: 30 0RF magnesium oxide 400 mg (241.3 mg magnesium) Tablet 400 mg PO BEDTIME Qty: 0 0RF mirtazapine 30 mg Tablet 30 mg PO BEDTIME Qty: 0 0RF buspirone 10 mg Tablet 10 mg PO TID Qty: 0 0RF risperidone 1 mg Tablet 1 mg PO BID Qty: 0 0RF ferrous sulfate 324 mg (65 mg iron) Tablet,Delayed Release (Dr/Ec) 324 mg PO DAILY Qty: 0 0RF prednisone 10 mg Tablet 30 mg PO DAILY Qty: 0 0RF Taper: Prednisone 40 mg daily for 5 Days and 0 Hour 30 mg daily for 2 Days and 0 Hour 20 mg daily for 2 Days and 0 Hour 10 mg daily for 2 Days and 0 Hour melatonin 3 mg Tablet 12 mg PO BEDTIME Qty: 0 0RF cyanocobalamin (vitamin B-12) 1,000 mcg/mL Solution 1,000 mcg IM Q7D Qty: 0 0RF multivitamin [Daily-Leona] Tablet 1 tab PO DAILY Qty: 0 0RF Continued fluticasone propion-salmeterol 250-50 mcg/dose Blister With Device 1 inh INHALATION BID Rx Instructions: rinse mouth after use sildenafil 100 mg Tablet 100 mg PO DAILY PRN (Reason: Erectile Dysfunction) Rx Instructions: administer 30 minutes to 4 hours before activity lamotrigine 100 mg Tablet 100 mg PO BEDTIME diclofenac sodium 1 % Gel 4 g TOPICAL QID Rx Instructions: apply to single knee, ankle, foot; for foot includes sole/toes/top of foot buprenorphine 20 mcg/hour Patch Weekly 1 patch TRANSDERMAL QWEEK buprenorphine HCl 75 mcg Film 75 mcg BUCCAL Q12H PRN (Reason: acute pain) Discontinued multivitamin Tablet 1 tab PO DAILY prednisone 10 mg Tablet 10 mg PO DAILY PRN (Reason: gout attack) Rx Instructions: use for 3 days in a row for gout attack atorvastatin 20 mg Tablet 20 mg PO BEDTIME quetiapine 100 mg Tablet 100 mg PO BID PRN (Reason: voices/anxiety) buspirone 10 mg Tablet 10 mg PO TID benztropine 1 mg Tablet 1 mg PO BID PRN (Reason: EPS) nicotine 21 mg/24 hr Patch 24 Hour 1 patch TRANSDERMAL DAILY docusate sodium 100 mg Capsule 100 mg PO BID PRN (Reason: Constipation) mirtazapine 15 mg Tablet 15 mg PO BEDTIME quetiapine 400 mg Tablet 800 mg PO BEDTIME melatonin 5 mg Tablet 20 mg PO BEDTIME PRN (Reason: Insomnia) febuxostat 40 mg Tablet 40 mg PO DAILY ferrous gluconate 324 mg (37.5 mg iron) Tablet 324 mg PO DAILY tiotropium bromide 2.5 mcg/actuation Mist 2 puff INHALATION DAILY acetaminophen 500 mg tablet 500 mg PO Q6H PRN (Reason: pain) Discharge Orders: Discharge Order (Routine); Ordered 09/05/23 Ordered By: Jennifer Ryan Diet: Regular diet Activity on Discharge: As tolerated Stand Alone Forms: Patient Portal Discharge page Print Language: Romansh Care Plan Goals: 1. maintain mood 2. No SI/HI 3. No self injurious behaviors Health Concerns: Follow up with PCP for exacerbation of gout Currently on prednisone taper: prednisone 30mg daily on 09/05 prednisone 20 mg daily on 09/06 & 09/07 prednisone 10mg daily on 09/08 & 09/09, then stop Plan of Treatment: -Take medications as prescribed. Mr. Gupta does need help due to cognitive impairments managing medications - Go to nearest ED or call 911 in event of emergency Assessment: Pt with brighter, non labile affect. No SI/HI. No delusions. Future oriented. Underlying cognitive impairment affecting executive function, visuo spatial, recall, intact orientation.
--- NOTE | 2023-09-05 11:37 | PC.NURSE ---
Pt alert, oriented. Pt reported readiness for discharge. Discharge instructions given to patient. Re-educated on meds and appointments. Took his belongings. P/u by girlfriend in front of the hospital. Left the unit at 11:10.
--- NOTE | 2023-09-05 12:09 | PC.NURSE ---
Pt was contacted d/t left his cell phone here, stated, his daughter will p/u the phone for him. Didn't specified when.
== END 2023-09-05 11:10 | disposition home or self-care (01) | DRG 882 ==
LOC: HO.ED 08-29 16:02 → HO.PM5 08-29 17:18
PROVIDERS: Physician Assistant; Admitting Provider Clinical Nurse Specialist Psychiatric/Mental Health, Adult; Emergency Provider Internal Medicine; Visit Provider Clinical Nurse Specialist Psychiatric/Mental Health, Adult
DX: F43.12 Post-traumatic stress disorder, chronic (principal); M10.9 Gout, unspecified; F17.210 Nicotine dependence, cigarettes, uncomplicated; Z20.822 Contact with and (suspected) exposure to COVID-19; Y37.90XA Military operations, unspecified, initial encounter; Z91.82 Personal history of military deployment; F01.50 Vascular dementia, unspecified severity, without behavioral disturbance, psychotic disturbance, mood disturbance, and anxiety; Z71.6 Tobacco abuse counseling; Z79.51 Long term (current) use of inhaled steroids; Z79.52 Long term (current) use of systemic steroids; Z79.899 Other long term (current) drug therapy
CPT/HCPCS: 0241U; 36415; 70450; 71045; 80048; 80053; 80061; 80307; 81003; 82607; 82746; 83036; 83735; 84439; 84443; 84550; 85025; 93005; 99285; J3420; S9485

== ENCOUNTER → 2023-08-28 15:40 | Outpatient (BNV) | payer OTHER, SELFPAY | PROVIDERS: Emergency Provider Internal Medicine; Visit Provider Internal Medicine Cardiovascular Disease | DX: R94.31 Abnormal electrocardiogram [ECG] [EKG] (principal); R53.1 Weakness | CPT/HCPCS: 93010 ==

== ENCOUNTER → 2023-08-29 17:15 | Outpatient (BNV) | payer OTHER, MEDICARE, SELFPAY | PROVIDERS: Admitting Provider Clinical Nurse Specialist Psychiatric/Mental Health, Adult; Emergency Provider Internal Medicine; Visit Provider Social Worker | DX: F43.12 Post-traumatic stress disorder, chronic (principal); Z91.82 Personal history of military deployment; R41.89 Other symptoms and signs involving cognitive functions and awareness | CPT/HCPCS: 90792; 99231; 99232; 99238 ==